=== PATIENT | female | born 1960 | race Caucasian/White ===

== ENCOUNTER 2020-06-16 10:33 | Outpatient (REF) | payer MEDICARE, OTHER, MEDICAID, SELFPAY ==
[2020-06-16 12:10] LABS: MANUAL DIFF FLAG NO
[2020-06-16 12:16] LABS: Basophils Percent Auto 0.3 % (0-2); Eosinophils Absolute Auto 0.1 X10*3/uL (0.0-0.4); Eosinophils Percent Auto 0.8 % (0-4); Hematocrit 46.6 % (37-47); Hemoglobin 15.2 g/dl (12.0-16.0); Imm Gran Abs Auto 0.02 X10*3/uL (0.00-0.03); Imm Gran Pct Auto 0.2 % (0.0-0.4); Lymphocytes Absolute Auto 2.6 X10*3/uL (1.2-4.9); Lymphocytes Percent Auto 28.9 % (20-40); Mean Corpuscular HGB Conc 32.6 g/dl (31.0-35.0); Mean Corpuscular Hemoglobin 33.1 pg (27.0-33.0); Mean Corpuscular Volume 101.5 fL (80-98); Mean Platelet Volume 9.7 fL (9.4-12.3); Monocytes Absolute Auto 0.5 X10*3/uL (0.1-1.2); Monocytes Percent Auto 5.3 % (2-11); Neutrophils Absolute Auto 5.7 X10*3/uL (2.0-8.3); Neutrophils Percent Auto 64.5 % (45-73); Platelet Count 224 X10*3/uL (160-400); Red Blood Count 4.59 X10*6/uL (4.20-5.50); Red Cell Distribution Width 12.8 % (11.0-16.0); White Blood Count 8.9 X10*3/uL (4.8-10.8)
[2020-06-16 12:20] LABS: Glucose Urine UA NEG (NEG); Leukocyte Esterase Urine NEG (NEG); Nitrite Urine NEG (NEG); Urine Blood 1+ (NEG); Urine Ketones NEG (NEG); Urine Protein NEG (NEG-TRACE)
[2020-06-16 12:21] LABS: Appearance Urine HAZY; Color Urine YELLOW
[2020-06-16 12:29] LABS: Bacteria Urine TRACE /LPF; Squamous Epithelial Cell Urine 2+ /LPF; WBC Urine 0 /HPF (0-4)
[2020-06-16 12:38] LABS: Alanine Aminotransferase 15 U/L (0-31); Albumin Level 4.4 g/dL (3.5-5.0); Alkaline Phosphatase 89 U/L (39-117); Anion Gap 14 (12-20); Aspartate Amino Transferase 15 U/L (5-31); Bilirubin Total 0.7 mg/dL (0.0-1.0); Blood Urea Nitrogen 13 mg/dL (9-16); Calcium 9.6 mg/dL (8.4-10.2); Carbon Dioxide 29 mmol/L (22-29); Chloride 101 mmol/L (96-108); Cholesterol 236 mg/dL; Estimated Glomerular Filt Rate > 60; Glucose Fasting 103 mg/dL (60-99); HDL Cholesterol 58 mg/dL; LDL Cholesterol Calculated 151 mg/dl; Potassium 4.8 mmol/l (3.3-5.1); Sodium 139 mmol/L (135-145); Total Protein 7.6 g/dL (6.5-8.0); Triglycerides 138 mg/dL
== END 2020-06-16 10:34 | disposition home or self-care (01) ==
LOC: HO.LAB 10:33
PROVIDERS: PCP Internal Medicine Endocrinology, Diabetes & Metabolism; Visit Provider Internal Medicine Endocrinology, Diabetes & Metabolism
DX: I10 Essential (primary) hypertension (principal); M19.90 Unspecified osteoarthritis, unspecified site
CPT/HCPCS: 36415; 80053; 80061; 81001; 85025

== ENCOUNTER 2021-06-15 07:56 | Outpatient (REF) | payer MEDICARE, OTHER, SELFPAY ==
[2021-06-15 08:15] LABS: MANUAL DIFF FLAG NO
[2021-06-15 09:01] LABS: Basophils Percent Auto 0.4 % (0-2); Eosinophils Percent Auto 0.5 % (0-4); Hematocrit 44.1 % (37-47); Hemoglobin 14.6 g/dl (12.0-16.0); Imm Gran Abs Auto 0.01 X10*3/uL (0.00-0.03); Imm Gran Pct Auto 0.1 % (0.0-0.4); Lymphocytes Absolute Auto 2.7 X10*3/uL (1.2-4.9); Lymphocytes Percent Auto 34.1 % (20-40); Mean Corpuscular HGB Conc 33.1 g/dl (31.0-35.0); Mean Corpuscular Hemoglobin 33.3 pg (27.0-33.0); Mean Corpuscular Volume 100.5 fL (80-98); Mean Platelet Volume 9.2 fL (9.4-12.3); Monocytes Absolute Auto 0.4 X10*3/uL (0.1-1.2); Monocytes Percent Auto 5.4 % (2-11); Neutrophils Absolute Auto 4.7 X10*3/uL (2.0-8.3); Neutrophils Percent Auto 59.5 % (45-73); Platelet Count 223 X10*3/uL (160-400); Red Blood Count 4.39 X10*6/uL (4.20-5.50); Red Cell Distribution Width 12.8 % (11.0-16.0); White Blood Count 7.9 X10*3/uL (4.8-10.8)
[2021-06-15 09:29] LABS: Alanine Aminotransferase 15 U/L (0-31); Albumin Level 4.1 g/dL (3.5-5.0); Alkaline Phosphatase 81 U/L (39-117); Anion Gap 12 (12-20); Aspartate Amino Transferase 15 U/L (5-31); Bilirubin Total 0.9 mg/dL (0.0-1.0); Blood Urea Nitrogen 12 mg/dL (9-16); Calcium 9.7 mg/dL (8.4-10.2); Carbon Dioxide 26 mmol/L (22-29); Chloride 105 mmol/L (96-108); Cholesterol 224 mg/dL; Estimated Glomerular Filt Rate > 60; Glucose Fasting 97 mg/dL (60-99); HDL Cholesterol 53 mg/dL; LDL Cholesterol Calculated 144 mg/dl; Potassium 4.9 mmol/L (3.3-5.1); Sodium 138 mmol/L (135-145); Total Protein 7.2 g/dL (6.5-8.0); Triglycerides 136 mg/dL
== END 2021-06-15 07:57 | disposition home or self-care (01) ==
LOC: HO.LAB 07:56
PROVIDERS: PCP Internal Medicine Endocrinology, Diabetes & Metabolism; Visit Provider Internal Medicine Endocrinology, Diabetes & Metabolism
DX: E78.00 Pure hypercholesterolemia, unspecified (principal); I10 Essential (primary) hypertension
CPT/HCPCS: 36415; 80053; 80061; 85025

== ENCOUNTER 2021-11-05 10:05 | Outpatient (REF) | payer MEDICARE, OTHER, SELFPAY ==
[2021-11-05 11:29] LABS: MANUAL DIFF FLAG NO
[2021-11-05 11:41] LABS: Basophils Percent Auto 0.4 % (0-2); Eosinophils Percent Auto 0.5 % (0-4); Hematocrit 42.8 % (37.0-47.0); Hemoglobin 13.9 g/dl (12.0-16.0); Imm Gran Abs Auto 0.03 X10*3/uL (0.00-0.03); Imm Gran Pct Auto 0.4 % (0.0-0.4); Lymphocytes Absolute Auto 2.8 X10*3/uL (1.2-4.9); Lymphocytes Percent Auto 35.8 % (20-40); Mean Corpuscular HGB Conc 32.5 g/dl (31.0-35.0); Mean Corpuscular Volume 101.7 fL (80.0-98.0); Mean Platelet Volume 9.4 fL (9.4-12.3); Monocytes Absolute Auto 0.5 X10*3/uL (0.1-1.2); Monocytes Percent Auto 5.9 % (2-11); Neutrophils Absolute Auto 4.5 x10*3/uL (2.0-8.3); Platelet Count 221 X10*3/uL (160-400); Red Blood Count 4.21 X10*6/uL (4.20-5.50); Red Cell Distribution Width 13.1 % (11.0-16.0); White Blood Count 7.8 X10*3/uL (4.8-10.8)
[2021-11-05 12:11] LABS: Appearance Urine HAZY; Color Urine YELLOW; Glucose Urine UA NEG (NEG); Leukocyte Esterase Urine NEG (NEG); Nitrite Urine NEG (NEG); PH 5.5 (5.0-8.0); Specific Gravity - Urine >= 1.030 (1.005-1.025); Urine Blood TRACE (NEG); Urine Ketones NEG (NEG); Urine Protein NEG (NEG-TRACE)
[2021-11-05 12:16] LABS: Alanine Aminotransferase 12 U/L (0-31); Albumin Level 4.1 g/dL (3.5-5.0); Alkaline Phosphatase 75 U/L (39-117); Anion Gap 13 (12-20); Aspartate Amino Transferase 15 U/L (5-31); Bilirubin Total 0.6 mg/dL (0.0-1.0); Blood Urea Nitrogen 13 mg/dL (9-16); Calcium 9.5 mg/dL (8.4-10.2); Carbon Dioxide 26 mmol/L (22-29); Chloride 103 mmol/L (96-108); Cholesterol 212 mg/dL; Estimated Glomerular Filt Rate > 60; Glucose Fasting 89 mg/dL (60-99); HDL Cholesterol 55 mg/dL; LDL Cholesterol Calculated 132 mg/dl; Potassium 4.9 mmol/L (3.3-5.1); Sodium 137 mmol/L (135-145); Total Protein 7.1 g/dL (6.5-8.0); Triglycerides 126 mg/dL
[2021-11-05 12:20] LABS: TSH reflex Free T4 2.09 uIU/mL (0.32-4.0)
[2021-11-05 12:24] LABS: RBC Urine 0-2 /HPF (0); WBC Urine 0-2 /HPF (0-4)
[2021-11-05 12:25] LABS: Amorphous Sediment Urine 1+ /LPF; Bacteria Urine 1+ /LPF; Mucus Urine 1+ /LPF; Squamous Epithelial Cell Urine 2+ /LPF
[2021-11-05 12:33] LABS: Amphetamine Screen Urine Not Detected (Not Detect); Barbiturates, Urine Not Detected (Not Detect); Benzodiazepines Screen Urine Not Detected (Not Detect); Cannabinoid Screen Urine POSITIVE (Not Detect); Cocaine Screen Urine Not Detected (Not Detect); Fentanyl, urine Not Detected (Not Detect); Opiate Screen Urine POSITIVE (Not Detect); Phencyclidine Screen Urine Not Detected (Not Detect)
[2021-11-05 12:38] LABS: Creatinine Urine 174.56 mg/dL; Microalbum/Creatinine Ratio Ur 7.4 ug/mg cr
== END 2021-11-05 10:06 | disposition home or self-care (01) ==
LOC: HO.WFDLDS 10:05
PROVIDERS: Visit Provider Family Medicine
DX: Z00.00 Encounter for general adult medical examination without abnormal findings (principal); M54.50 Low back pain, unspecified; I10 Essential (primary) hypertension; G89.29 Other chronic pain; Z79.891 Long term (current) use of opiate analgesic
CPT/HCPCS: 80053; 80061; 80307; 81001; 81003; 82043; 84443; 85025; 86141

== ENCOUNTER 2021-12-24 08:06 | Outpatient (REF) | payer MEDICARE, OTHER, SELFPAY ==
[2021-12-24 12:40] LABS: Ferritin 85 ng/mL (10-250)
[2021-12-24 12:48] LABS: Rheumatoid Factor < 15.0 IU/mL (<15.0)
[2021-12-24 13:35] LABS: Erythrocyte Sedimentation Rate 14 MM/HR (0-20)
[2021-12-26 14:26] LABS: CRP High Sensitivity 2.1 mg/L
[2021-12-26 17:02] LABS: Cyclic Citrullinated Peptide <16 UNITS
== END 2021-12-24 08:07 | disposition home or self-care (01) ==
LOC: HO.WFDLDS 08:06
PROVIDERS: Visit Provider Family Medicine
DX: M25.531 Pain in right wrist (principal); G25.81 Restless legs syndrome
CPT/HCPCS: 36415; 82728; 85652; 86141; 86200; 86431

== ENCOUNTER 2022-03-29 10:49 | Outpatient (REF) | payer MEDICARE, MEDICAID, SELFPAY ==
[2022-03-29 14:15] LABS: Amphetamine Screen Urine Not Detected (Not Detect); Barbiturates, Urine Not Detected (Not Detect); Benzodiazepines Screen Urine Not Detected (Not Detect); Cannabinoid Screen Urine POSITIVE (Not Detect); Cocaine Screen Urine Not Detected (Not Detect); Fentanyl, urine Not Detected (Not Detect); Opiate Screen Urine POSITIVE (Not Detect); Phencyclidine Screen Urine Not Detected (Not Detect)
== END 2022-03-29 10:50 | disposition home or self-care (01) ==
LOC: HO.WFDLNP 10:49
PROVIDERS: Visit Provider Family Medicine
DX: G89.29 Other chronic pain (principal); Z79.891 Long term (current) use of opiate analgesic
CPT/HCPCS: 80307

== ENCOUNTER 2022-09-09 14:49 | Outpatient (REF) | payer MEDICARE, MEDICAID, SELFPAY ==
--- NOTE | ~2022-09-09 | MM_ITS ---
EXAMINATION: MM SCREENING DIGITAL BREAST TOMOSYNTHESIS, BILATERAL CLINICAL INFORMATION: Screening. Asymptomatic. The lifetime risk of breast cancer based on the Tyrer-Cuzick Model is 6.1%. COMPARISON: Mammography: August 23, 2015 TECHNIQUE: Digital breast tomosynthesis is performed in both the craniocaudal and mediolateral oblique views along with computer-aided detection (CAD). Synthesized 2D images are generated from the tomosynthesis. FINDINGS: The breasts are almost entirely fatty (ACR BI-RADS breast composition Category a). There are no significant masses, abnormal calcifications, or other abnormalities. MM/MM tomosynthesis screening BI IMPRESSION: No significant changes ASSESSMENT: BI-RADS 1: Negative RECOMMENDATION: Routine annual mammography screening. This patient's information was entered into a reminder system with a target due date for their next mammogram.
== END 2022-09-09 14:50 | disposition home or self-care (01) ==
LOC: HO.MAMMO 14:49
PROVIDERS: PCP Family Medicine; Visit Provider Family Medicine
DX: Z12.31 Encounter for screening mammogram for malignant neoplasm of breast (principal)
CPT/HCPCS: 77063; 77067

== ENCOUNTER 2022-11-18 11:08 | Outpatient (REF) | payer MEDICARE, MEDICAID, SELFPAY ==
[2022-11-18 14:03] LABS: MANUAL DIFF FLAG NO
[2022-11-18 14:10] LABS: Basophils Percent Auto 0.3 % (0-2); Eosinophils Absolute Auto 0.1 X10*3/uL (0.0-0.4); Eosinophils Percent Auto 0.6 % (0-4); Hematocrit 46.7 % (37.0-47.0); Hemoglobin 15.2 g/dl (12.0-16.0); Imm Gran Abs Auto 0.03 X10*3/uL (0.00-0.03); Imm Gran Pct Auto 0.3 % (0.0-0.4); Lymphocytes Absolute Auto 2.8 X10*3/uL (1.2-4.9); Lymphocytes Percent Auto 30.3 % (20-40); Mean Corpuscular HGB Conc 32.5 g/dl (31.0-35.0); Mean Corpuscular Hemoglobin 33.2 pg (27.0-33.0); Mean Platelet Volume 9.5 fL (9.4-12.3); Monocytes Absolute Auto 0.6 X10*3/uL (0.1-1.2); Monocytes Percent Auto 5.9 % (2-11); Neutrophils Absolute Auto 5.8 x10*3/uL (2.0-8.3); Neutrophils Percent Auto 62.6 % (45-73); Platelet Count 261 X10*3/uL (160-400); Red Blood Count 4.58 X10*6/uL (4.20-5.50); Red Cell Distribution Width 12.9 % (11.0-16.0); White Blood Count 9.3 X10*3/uL (4.8-10.8)
[2022-11-18 14:24] LABS: Appearance Urine Clear; Color Urine Yellow; Glucose Urine UA Negative (Negative); Leukocyte Esterase Urine Negative (Negative); Nitrite Urine Negative (Negative); PH 5.5 (5.0-9.0); Specific Gravity - Urine 1.015 (1.005-1.025); UMIC TRIGGER UA YES; Urine Blood Small (1+) (Negative); Urine Ketones Negative (Negative); Urine Protein Negative (Neg-Trace)
[2022-11-18 14:48] LABS: Alanine Aminotransferase 26 U/L (0-31); Albumin Level 4.2 g/dL (3.5-5.0); Alkaline Phosphatase 87 U/L (39-117); Anion Gap 16 (12-20); Aspartate Amino Transferase 20 U/L (5-31); Bilirubin Total 0.5 mg/dL (0.0-1.0); Blood Urea Nitrogen 13 mg/dL (9-16); Calcium 9.6 mg/dL (8.4-10.2); Carbon Dioxide 26 mmol/L (22-29); Chloride 102 mmol/L (96-108); Cholesterol 254 mg/dL; Estimated Glomerular Filt Rate > 60; Glucose Fasting 97 mg/dL (60-99); HDL Cholesterol 64 mg/dL; LDL Cholesterol Calculated 167 mg/dl; Potassium 4.5 mmol/L (3.3-5.1); Sodium 139 mmol/L (135-145); Total Protein 7.4 g/dL (6.5-8.0); Triglycerides 115 mg/dL
[2022-11-18 15:03] LABS: Creatinine Urine 63.53 mg/dL; Microalbum/Creatinine Ratio Ur 15.7 ug/mg cr
[2022-11-18 15:05] LABS: Bacteria Urine None Seen (None Seen); Hyaline Casts Urine 0-2 /LPF (0-2); RBC Urine 0-2 /HPF (0-2); WBC Urine 0-5 /HPF (0-5)
[2022-11-18 15:09] LABS: TSH reflex Free T4 1.51 uIU/mL (0.32-4.0)
== END 2022-11-18 11:09 | disposition home or self-care (01) ==
LOC: HO.WFDLDS 11:08
PROVIDERS: Visit Provider Family Medicine
DX: Z00.00 Encounter for general adult medical examination without abnormal findings (principal); I10 Essential (primary) hypertension
CPT/HCPCS: 36415; 80053; 80061; 81001; 82043; 84443; 85025

== ENCOUNTER 2023-02-24 09:40 | Outpatient (REF) | payer MEDICARE, MEDICAID, SELFPAY ==
[2023-02-24 12:09] LABS: Cholesterol 241 mg/dL; HDL Cholesterol 58 mg/dL; LDL Cholesterol Calculated 152 mg/dl; Triglycerides 155 mg/dL
== END 2023-02-24 09:41 | disposition home or self-care (01) ==
LOC: HO.WFDLDS 09:40
PROVIDERS: Visit Provider Nurse Practitioner Family
DX: E78.00 Pure hypercholesterolemia, unspecified (principal)
CPT/HCPCS: 36415; 80061

== ENCOUNTER 2023-03-10 08:42 | Outpatient (AMB) | payer MEDICARE, MEDICAID, SELFPAY ==
[2023-03-10 08:45] VITALS: BP 132/88; PULSE 96; RESP 14; TEMP 36.6; O2SAT 98; BMI 39.1
--- NOTE | 2023-03-10 08:45 | MHC.PC.OV ---
Vital Signs 03/10/23 08:45 Height 5 ft 4 in Weight 228 lb BMI 39.1 BP 132/88 Blood Pressure Location Rt brachial Position Sitting Respiration 14 Pulse 96 Pulse Source Pulse Oximeter Temp 97.9 F Temp Source Temporal Artery Scan Pulse Oximetry (%) 98 Oxygen Delivery Method Room Air Intake Visit Reasons: anxiety/depression Intake Note: Patient presents today for a follow up regarding anxiety and depression. Patient states her medications are due for refill. Wash Driller Helper Required: No Accompanied by: Self / Same As Patient Allergies No Known Allergies Allergy (Verified 03/10/23 13:32) Medication List - Last Reconciled 03/10/23 by Miguel Fregoso CNP naloxone 4 mg/actuation (Narcan) 4 mg intranasal Q2M PRN 30 days oxycodone-acetaminophen 5-325 mg 1 tab PO BID PRN 28 days Tobacco use date assessed: 03/10/23 Dental Screening Dental Screen Date: 03/10/23 Did you have a dental visit in the last 12 months?: No Did you have a dental problem in the last 6 months where you did not have access to dental care?: No Was dental information given to patient?: No HPI HPI Comments History of Present Illness Details 63-year-old female presents for anxiety and depression follow-up She reports significant improvement with weekly therapy She notes she has been expanded activities by walking the stairs in her home She reports chronic persistent lower back and bilateral extremity pain which responds well to current pain regimen. No tingling or numbness. No loss of sensation. She request a refill of her pain medication She states she has been making progress with smoking cessation. She has reduced her smoking from 15 to 9 cigarettes daily. She notes that he will be more effective if she tries to quit independently instead of therapy or medication treatment. [facility] Family History (Updated 10/01/21 @ 15:07 by Ashleigh Araujo) Family/Other Cancer Social History Housing: Apartment Patient Tobacco Use Status: Current everyday Tobacco user Cigarette Packs Per Day: 0 Cigarettes Per Day: 10 Years Smoked: 10+ YEARS e-Cigarette/Vaping Use: Never Used Second Hand Smoke Exposure: Yes service: Yes Current occupational status: disabled Current occupational exposures/hazards: No Cognitive needs: No Hearing needs: No Vision needs: No Questionnaire PHQ-9 Over the last 2 weeks, how often have you been bothered by any of the following problems? 1. Little interest or pleasure in doing things: more than half the days 2. Feeling down, depressed, or hopeless: several days 3. Trouble falling or staying asleep, or sleeping too much: several days 4. Feeling tired or having little energy: several days 5. Poor appetite or overeating: more than half the days 6. Feeling bad about yourself - or that you are a failure or have let yourself or your family down: several days 7. Trouble concentrating on things, such as reading the newspaper or watching television: not at all 8. Moving or speaking so slowly that other people could have noticed. Or the opposite - being so fidgety or restless that you have been moving around a lot more than usual: several days 9. Thoughts that you would be better off or of hurting yourself in some way: not at all Total score: 9 Depression Screening Interpretation: Positive Depression Screening Follow-up: Existing condition and In treatment Source: Developed by Drs. Doug France, Juliann Allen, Jose Nelson and colleagues, with an educational tommy from [employer]. Thrive Questionnaire Date Thrive assessed: 10/01/21 JAIR-7 AMB Questionnaire JAIR-7 Date JAIR - 7 assessed: 03/10/23 Feeling nervous, anxious, or on edge: 1 = Several days Not being able to stop or control worryin = Several days Worrying too much about different things: 1 = Several days Trouble relaxin = Several days Being so restless that it is hard to sit still: 1 = Several days Becoming easily annoyed or irritable: 1 = Several days Feeling afraid as if something awful might happen: 0 = Not at all Total JAIR-7 score (0-4 normal; 5-9 mild; 10-14 moderate; 15-21 severe): 6 Source: Developed by Drs. Doug France, Juliann Allen, Jose Nelson and colleagues, with an educational tommy from [employer]. JAIR-7 Assessment Billing JAIR-7 Assessment Tool: JAIR-7 Assessment 11289 Review of Systems Const Details: Const Denies chills, Denies fatigue, Denies fever(s), Denies headache(s) and Denies weakness ENT Denies change in vision, Denies dizziness, Denies headache(s), Denies hearing loss, Denies nasal congestion, Denies sinus pain, Denies sinus pressure and Denies sore throat Resp Denies cough, Denies dyspnea, Denies wheezing and Denies other (shortness of breath) Cardio Denies chest pain, Denies lightheadedness, Denies dyspnea and Denies other (palpitations) Neuro Denies dizziness, Denies headache(s), Denies numbness, Denies tingling and Denies weakness Musc Reports as per HPI Psych Denies anxiety, Denies depression, Denies memory?loss Endo Denies fatigue Aller/Immun Denies wheezing Physical exam (Primary Care) Vital Signs: Last Vital Signs Temp 97.9 F 03/10/23 08:45 Pulse 96 03/10/23 08:45 Resp 14 03/10/23 08:45 BP 132/88 03/10/23 08:45 Pulse Ox 98 03/10/23 08:45 Oxygen Delivery Method Room Air 03/10/23 08:45 BMI result Body Mass Index 39.1 Tobacco/Smoking Status: Tobacco use Status Tobacco use date assessed 03/10/23 03/10/23 08:56 Patient Tobacco Use Status Current everyday Tobacco 03/10/23 08:46 e-Cigarette/Vaping Use Never Used 03/10/23 08:46 PHQ-9: PHQ-9 Score PHQ-9: Total score 9 03/10/23 09:06 Depression Screening Interpretation: Positive Depression Screening Follow-up: Existing condition and In treatment Thrive Assessment: Date of Thrive Assessment Date Thrive assessed 10/01/21 03/10/23 08:46 Const Other: Const General: well developed; No acute distress Nutritional Appearance: well nourished Orientation/consciousness: patient oriented x3 HEENT Head: Yes normocephalic and Yes atraumatic Eyes General: appearance normal, both eyes and all related structures Pupils: Equal, round and reactive pupils present EOM: EOMs intact bilaterally Resp Effort & Inspection: normal respiratory effort Auscultation: clear to auscultation bilaterally Cardio Rate: regular rate Rhythm: regular rhythm Heart sounds: S1 normal heart sound present, S2 normal heart sound present, no gallops, no murmurs and no rubs Bruits: no abdominal aortic bruits and no carotid bruit Back/Spine/Pelvis Back: no CVA tenderness Cervical Spine: cervical ROM normal and No Cervical spine tenderness Thoracic/Lumbar Spine: thoraco-lumbar ROM normal, No pain with thoraco-lumbar ROM, No thoracic spinal tenderness and No lumbar spinal tenderness Extrem General: Yes normal to inspection, No edema and No calf tenderness Neuro General: patient oriented x3 and gait normal, no focal neuro deficit Cranial nerves: Yes Equal, round and reactive pupils present Psych Affect: normal affect Assessment and Plan Assessment & Plan (1) Anxiety and depression: Code(s): F41.9 - Anxiety disorder, unspecified; F32.A - Depression, unspecified Plan: PHQ-9 and JAIR-7 scores revealed mild depression and anxiety Declines medication management Continue follow-up with therapist as planned Routine exercise encouraged Follow-up with PCP in 3 months month or return sooner with worsening or new symptoms Verbalized understanding and agreed with treatment plan. (2) Chronic pain: Code(s): G89.29 - Other chronic pain Plan: She reports chronic persistent lower back and bilateral extremity pain which responds well to current pain regimen Percocet refilled. Take as prescribed Warm and cold compresses encouraged Follow-up with worsening symptoms Verbalized understanding and agreed with treatment plan. (3) Encounter for smoking cessation counseling: Code(s): Z71.6 - Tobacco abuse counseling Plan: She states she has been making progress with smoking cessation. She has reduced her smoking from 15 to 9 cigarettes daily. She notes that he will be more effective if she tries to quit independently instead of therapy or medication treatment Declines smoking cessation counseling Smoking cessation encouraged Advised to inform her PCP if she changes her mind on therapy or medication treatment Verbalized understanding and agreed with plan. Medications: Refilled oxycodone-acetaminophen 5-325 mg MassPat verified. Partial refill upon request. 1 tab PO BID 28 days PRN 56 tabs 0RF pain Coding Level of Care Code Est Pt Level 4 (26493) Diagnoses Anxiety and depression F41.9; F32.A Chronic pain G89.29 Encounter for smoking cessation counseling Z71.6 Additional Codes JAIR-7 Assessment Billing - JAIR-7 Assessment Tool: JAIR-7 Assessment 59723 ([id number]) Time Spent (min) 30
== END 2023-03-10 09:30 | disposition home or self-care (01) ==
PROVIDERS: Visit Provider Nurse Practitioner Family
DX: F41.9 Anxiety disorder, unspecified (principal); F32.A Depression, unspecified; G89.29 Other chronic pain; Z71.6 Tobacco abuse counseling
CPT/HCPCS: 96127; 99214

== ENCOUNTER 2023-06-09 08:50 | Outpatient (AMB) | payer MEDICARE, MEDICAID, SELFPAY ==
[2023-06-09 08:56] VITALS: BP 154/80; PULSE 96; RESP 13; TEMP 36.4; O2SAT 95; BMI 40.0
--- NOTE | 2023-06-09 08:56 | MHC.PC.OV ---
Vital Signs 06/09/23 08:56 06/09/23 09:33 Height 5 ft 4 in Weight 233 lb BMI 40.0 BP 154/80 H 138/90 H Blood Pressure Location Lt brachial Lt brachial Position Sitting Sitting Respiration 13 Pulse 96 Pulse Source Pulse Oximeter Temp 97.5 F Temp Source Temporal Artery Scan Pulse Oximetry (%) 95 Oxygen Delivery Method Room Air Intake Visit Reasons: anxiety/depression and chronic conditions Intake Note: Patient would like to be referred to a machinist apprentice wood. Patient would also like to be referred to OBGYN as well due to new family history coming up. [id number] states that her PHQ-9 scores and Jackson-7 scores are based off of new family issues and worries that have been present past 2 weeks Bartenders Required: No Accompanied by: Self / Same As Patient Allergies No Known Allergies Allergy (Verified 06/09/23 09:22) Medication List - Last Reconciled 06/09/23 by Miguel Fregoso CNP naloxone 4 mg/actuation (Narcan) 4 mg intranasal Q2M PRN 30 days oxycodone-acetaminophen 5-325 mg 1 tab PO BID PRN 28 days Tobacco use date assessed: 03/10/23 Dental Screening Dental Screen Date: 06/09/23 Did you have a dental visit in the last 12 months?: Yes Did you have a dental problem in the last 6 months where you did not have access to dental care?: No Was dental information given to patient?: Patient has dentist HPI HPI Comments History of Present Illness Details 63-year-old female presents for anxiety and depression follow-up She reports significant improvement with weekly therapy She notes she has been expanded activities by walking the stairs in her home. She notes that she has been making unhealthy dietary choices and requests a referral to a machinist apprentice wood/dietitian. [facility] Medical History No pertinent past medical history Surgical History No pertinent past surgical history Family History Family/Other Cancer Social History Housing: Apartment Patient Tobacco Use Status: Current everyday Tobacco user Cigarette Packs Per Day: 0 Cigarettes Per Day: 10 Years Smoked: 10+ YEARS e-Cigarette/Vaping Use: Never Used Second Hand Smoke Exposure: Yes service: Yes Current occupational status: disabled Current occupational exposures/hazards: No Cognitive needs: No Hearing needs: No Vision needs: No Questionnaire PHQ-9 Over the last 2 weeks, how often have you been bothered by any of the following problems? 1. Little interest or pleasure in doing things: several days 2. Feeling down, depressed, or hopeless: several days 3. Trouble falling or staying asleep, or sleeping too much: several days 4. Feeling tired or having little energy: more than half the days 5. Poor appetite or overeating: more than half the days 6. Feeling bad about yourself - or that you are a failure or have let yourself or your family down: several days 7. Trouble concentrating on things, such as reading the newspaper or watching television: several days 8. Moving or speaking so slowly that other people could have noticed. Or the opposite - being so fidgety or restless that you have been moving around a lot more than usual: not at all 9. Thoughts that you would be better off or of hurting yourself in some way: not at all Total score: 9 Depression Screening Interpretation: Positive Depression Screening Follow-up: Existing condition and In treatment Depression Screening Done: Yes Source: Developed by Drs. Doug France, Juliann Allen, Jose Nelson and colleagues, with an educational tommy from [employer]. Thrive Questionnaire Date Thrive assessed: 10/01/21 JACKSON-7 AMB Questionnaire JACKSON-7 Date JACKSON - 7 assessed: 06/09/23 Feeling nervous, anxious, or on edge: 1 = Several days Not being able to stop or control worryin = Several days Worrying too much about different things: 1 = Several days Trouble relaxin = Not at all Being so restless that it is hard to sit still: 0 = Not at all Becoming easily annoyed or irritable: 0 = Not at all Feeling afraid as if something awful might happen: 1 = Several days Total JACKSON-7 score (0-4 normal; 5-9 mild; 10-14 moderate; 15-21 severe): 4 Source: Developed by Juliann Yin Alejandro, Jose Nelson and colleagues, with an educational tommy from [employer]. Review of Systems Const Details: Const Denies chills, Denies fatigue, Denies fever(s), Denies headache(s) and Denies weakness ENT Denies dizziness and Denies headache(s) Card Denies chest pain, Denies lightheadedness, Denies dyspnea and Denies other (Palpitations) Resp Denies cough, Denies dyspnea, Denies wheezing and Denies other ( shortness of breath) GI Denies abdominal pain, Denies melena, Denies hematochezia, Denies change in bowel habits, Denies dyspepsia and Denies nausea Denies hematuria and Denies dysuria Musc Reports chronic low back pain, Denies abnormal gait, Denies numbness and Denies tingling Skin/Breast Denies rash, Denies unusual bruising and Denies wounds Neuro Denies abnormal gait, Denies dizziness, Denies headache(s), Denies memory loss, Denies numbness, Denies Sensory deficit (Neuro), Denies tingling and Denies weakness Psych Denies anxiety, Denies depression, Denies memory loss Endo Denies cold intolerance, Denies fatigue, Denies heat intolerance, Denies polydipsia and Denies polyuria Aller/Immun Denies wheezing Physical exam (Primary Care) Vital Signs: Last Vital Signs Temp 97.5 F 06/09/23 08:56 Pulse 96 06/09/23 08:56 Resp 13 06/09/23 08:56 BP 154/80 H 06/09/23 08:56 Pulse Ox 95 06/09/23 08:56 Oxygen Delivery Method Room Air 06/09/23 08:56 BMI result Body Mass Index 40.0 Tobacco/Smoking Status: Tobacco use Status Tobacco use date assessed 03/10/23 06/09/23 09:07 Patient Tobacco Use Status Current everyday Tobacco 06/09/23 09:07 e-Cigarette/Vaping Use Never Used 06/09/23 09:07 PHQ-9: PHQ-9 Score PHQ-9: Total score 9 06/09/23 09:07 Depression Screening Interpretation: Positive Depression Screening Follow-up: Existing condition and In treatment Thrive Assessment: Date of Thrive Assessment Date Thrive assessed 10/01/21 06/09/23 09:07 Const Other: General: no acute distress and well developed Nutritional Appearance: well nourished Orientation/consciousness: patient oriented x3 HENMT Head: Yes normocephalic and Yes atraumatic Eyes General: appearance normal, both eyes and all related structures Pupils: Equal, round and reactive pupils present EOM: EOMs intact bilaterally Resp Effort & Inspection: normal respiratory effort Auscultation: clear to auscultation bilaterally Cardio Rate: regular rate Rhythm: regular rhythm Heart sounds: S1 normal heart sound present, S2 normal heart sound present, no gallops, no murmurs and no rubs GI Palpation (GI): No Abdominal aortic bruit present, Soft to palpation, nontender, No hepatosplenomegaly present and No Rebound tenderness present Auscultation: normal bowel sounds General: Yes no CVA tenderness Back/Spine/Pelvis Back: no CVA tenderness Cervical Spine: cervical ROM normal and No Cervical spine tenderness Thoracic/Lumbar Spine: thoraco-lumbar ROM normal, No pain with thoraco-lumbar ROM, No thoracic spinal tenderness and No lumbar spinal tenderness Extrem General: Yes normal to inspection, No edema and No calf tenderness Skin General: warm and dry. Normal skin color. Normal skin turgor Lesions: no lesions Rashes: no rashes Trauma: no lacerations or abrasions Wounds: no wounds Nails: normal Neuro General: patient oriented x3, gait normal and no focal neuro deficit Cranial nerves: Yes Equal, round and reactive pupils present Cognition (Neuro): normal cognition Gait exam (Neuro): Normal gait present Sensory Exam: No Sensory deficit (Neuro) Psych Appearance: grossly normal Affect: normal affect Attitude: cooperative Thought process: Normal thought process present Assessment and Plan Assessment & Plan (1) Anxiety and depression: Code(s): F41.9 - Anxiety disorder, unspecified; F32.A - Depression, unspecified Plan: PHQ-9 score reveals mild depression. JACKSON-7 score is normal Advised to continue weekly psychotherapy Routine exercise encouraged Follow-up with PCP in 1-2 month for health maintenance Return sooner with worsening or new symptoms Verbalized understanding and agreed with treatment plan. (2) Morbid obesity with BMI of 40.0-44.9, adult: Code(s): E66.01 - Morbid (severe) obesity due to excess calories; Z68.41 - Body mass index [BMI] 40.0-44.9, adult Plan: Current weight is 233 lb, BMI is 40.0 He reports only healthy dietary choices Healthy diet and routine exercise encouraged Referred to dietitian/machinist apprentice wood Follow-up with symptoms or concerns Verbalized understanding and agreed with treatment plan. (3) Low back pain: Code(s): M54.50 - Low back pain, unspecified Qualifiers: Chronicity: chronic Sciatica presence: without sciatica Plan: History of chronic low back pain On long-term opioid use for pain management Continue to take Percocet as prescribed. Refill sent to the pharmacy Return with worsening or new symptoms Verbalized understanding and agreed with treatment plan. Orders: Referrals School Child Care Attendant Nutrition Referral E66.01 - Morbid (severe) obesity due to excess calories, Z68.41 - Body mass index [BMI] 40.0-44.9, adult Medications: Refilled oxycodone-acetaminophen 5-325 mg MassPat verified. Partial refill upon request. 1 tab PO BID 28 days PRN 56 tabs 0RF pain Coding Level of Care Code Est Pt Level 3 (16065) Diagnoses Anxiety and depression F41.9; F32.A Morbid obesity with BMI of 40.0-44.9, adult E66.01; Z68.41 Low back pain M54.50 Chronicity: chronic Sciatica presence: without sciatica
[2023-06-09 09:33] VITALS: BP 138/90
== END 2023-06-09 09:40 | disposition home or self-care (01) ==
PROVIDERS: PCP Family Medicine; Visit Provider Nurse Practitioner Family
DX: F41.9 Anxiety disorder, unspecified (principal); F32.A Depression, unspecified; E66.01 Morbid (severe) obesity due to excess calories; Z68.41 Body mass index [BMI] 40.0-44.9, adult; M54.50 Low back pain, unspecified
CPT/HCPCS: 99213

== ENCOUNTER 2023-10-23 09:13 | Outpatient (AMB) | payer MEDICARE, MEDICAID, SELFPAY ==
--- NOTE | 2023-10-23 09:17 | MHC.PC.OV ---
Vital Signs 10/23/23 09:18 Height 5 ft 4 in Weight 221 lb 8 oz BMI 38.0 BP 138/78 Blood Pressure Location Lt brachial Position Sitting Pulse 93 Pulse Source Pulse Oximeter Pulse Oximetry (%) 97 Oxygen Delivery Method Room Air Intake Visit Reasons: f/u health maintenance, see comments Intake Note: Patient is here to follow up with health maintenance, depression, and anxiety. Patient would like updated CT scan. Allergies No Known Allergies Allergy (Verified 10/23/23 09:21) Tobacco use date assessed: 03/10/23 Dental Screening Dental Screen Date: 10/23/23 Did you have a dental visit in the last 12 months?: No Did you have a dental problem in the last 6 months where you did not have access to dental care?: No Was dental information given to patient?: Patient has dentist HPI f/u health maintenance, see comments HPI Details 63 y/o female presents to f/u chronic conditions. Pt reports worsening low back pain with pressure. PFS Medical History No pertinent past medical history Surgical History No pertinent past surgical history Family History Family/Other Cancer Social History Housing: Apartment Patient Tobacco Use Status: Current everyday Tobacco user Cigarette Packs Per Day: 0 Cigarettes Per Day: 10 Years Smoked: 10+ YEARS e-Cigarette/Vaping Use: Never Used Second Hand Smoke Exposure: Yes service: Yes Current occupational status: disabled Current occupational exposures/hazards: No Cognitive needs: No Hearing needs: No Vision needs: No Questionnaire PHQ-9 Over the last 2 weeks, how often have you been bothered by any of the following problems? 1. Little interest or pleasure in doing things: several days 2. Feeling down, depressed, or hopeless: not at all 3. Trouble falling or staying asleep, or sleeping too much: several days 4. Feeling tired or having little energy: not at all 5. Poor appetite or overeating: several days 6. Feeling bad about yourself - or that you are a failure or have let yourself or your family down: not at all 7. Trouble concentrating on things, such as reading the newspaper or watching television: not at all 8. Moving or speaking so slowly that other people could have noticed. Or the opposite - being so fidgety or restless that you have been moving around a lot more than usual: not at all 9. Thoughts that you would be better off or of hurting yourself in some way: not at all Total score: 3 Depression Screening Interpretation: Negative Depression Screening Done: Yes 83815 - PHQ-9 Billing: Yes Source: Developed by Drs. Doug France, Juliann Allen, Jose Nelson and colleagues, with an educational tommy from [employer]. Thrive Questionnaire Date Thrive assessed: 10/01/21 JAIR-7 AMB Questionnaire JAIR-7 Date JAIR - 7 assessed: 10/23/23 Feeling nervous, anxious, or on edge: 0 = Not at all Not being able to stop or control worryin = Several days Worrying too much about different things: 1 = Several days Trouble relaxin = Several days Being so restless that it is hard to sit still: 1 = Several days Becoming easily annoyed or irritable: 0 = Not at all Feeling afraid as if something awful might happen: 0 = Not at all Total JAIR-7 score (0-4 normal; 5-9 mild; 10-14 moderate; 15-21 severe): 4 Source: Developed by Drs. Doug France, Juliann Allen, Jose Nelson and colleagues, with an educational tommy from [employer]. JAIR-7 Assessment Billing JAIR-7 Assessment Tool: JAIR-7 Assessment 73160 Review of Systems Const Denies chills, Denies fatigue, Denies fever(s), Denies headache(s) and Denies weakness ENT Denies dizziness and Denies headache(s) Card Denies chest pain, Denies lightheadedness, Denies dyspnea and Denies other (Palpitations) Resp Denies cough, Denies dyspnea, Denies wheezing and Denies other ( shortness of breath) Musc Denies numbness and Denies tingling Neuro Denies dizziness, Denies headache(s), Denies numbness, Denies tingling, Denies paresthesias and Denies weakness Psych Denies anxiety and Denies depression Endo Denies fatigue Aller/Immun Denies wheezing Physical exam (Primary Care) Vital Signs: Last Vital Signs Pulse 93 10/23/23 09:18 BP 138/78 10/23/23 09:18 Pulse Ox 97 10/23/23 09:18 Oxygen Delivery Method Room Air 10/23/23 09:18 BMI result Body Mass Index 38.0 Tobacco/Smoking Status: Tobacco use Status Tobacco use date assessed 03/10/23 10/23/23 09:31 Patient Tobacco Use Status Current everyday Tobacco 10/23/23 09:31 e-Cigarette/Vaping Use Never Used 10/23/23 09:31 PHQ-9: PHQ-9 Score PHQ-9: Total score 3 10/23/23 10:14 Depression Screening Interpretation: Negative Thrive Assessment: Date of Thrive Assessment Date Thrive assessed 10/01/21 10/23/23 09:31 Const General: no acute distress and well developed Nutritional Appearance: well nourished Orientation/consciousness: patient oriented x3 [facility] Head: Yes normocephalic and Yes atraumatic Eyes General: appearance normal, both eyes and all related structures Pupils: Equal, round and reactive pupils present EOM: EOMs intact bilaterally Resp Effort & Inspection: normal respiratory effort Auscultation: clear to auscultation bilaterally Cardio Rate: regular rate Rhythm: regular rhythm Heart sounds: S1 normal heart sound present, S2 normal heart sound present, no gallops, no murmurs and no rubs Neuro General: patient oriented x3 and gait normal Cranial nerves: Yes Equal, round and reactive pupils present Psych Affect: normal affect Assessment and Plan Assessment & Plan (1) Anxiety and depression: Code(s): F41.9 - Anxiety disorder, unspecified; F32.A - Depression, unspecified Plan: Well?controlled?and?seeing?her?therapist?regularly Continue?to?follow-up?with?therapist?as?recommended (2) Chronic pain: Code(s): G89.29 - Other chronic pain Plan: Chronic?low?back?pain?and?cervicalgia?with?some?symptoms?into?right?arm. Continue?chronic?opioid?medication Will?also?recheck?x-rays?and?may?need?additional?imaging. Will?follow-up?on?x-rays?and?decide?next?steps?with?patient?at?next?visit?in?2-3?weeks (3) Low back pain: Code(s): M54.50 - Low back pain, unspecified Qualifiers: Chronicity: chronic Sciatica presence: without sciatica Plan: As?above (4) Screening for colon cancer: Code(s): Z12.11 - Encounter for screening for malignant neoplasm of colon Plan: Patient?has?not Had?colonoscopy?yet. Recent?a?referral?to?gastroenterology?and?encouraged?her?to?follow-up. (5) Screening for cervical cancer: Code(s): Z12.4 - Encounter for screening for malignant neoplasm of cervix Plan: She?has?an?appointment?with?a?[employer] employment representative (6) Breast cancer screening by mammogram: Code(s): Z12.31 - Encounter for screening mammogram for malignant neoplasm of breast Plan: Due?for?mammogram-ordered (7) Cervicalgia: Code(s): M54.2 - Cervicalgia Plan: As?above,?patient?will?get?x-rays?and?follow-up May?need?additional?imaging?and?we?will?also?discuss?referral?to?a?specialist?as?needed Orders: Orders XR cervical spine 2V Today M54.2 - Cervicalgia XR lumbar spine 2-3V Today M54.50 - Low back pain, unspecified MM tomosynthesis screening BI Today Z12.31 - Encounter for screening mammogram for malignant neoplasm of breast Coding Level of Care Code Est Pt Level 4 (24949) Diagnoses Anxiety and depression F41.9; F32.A Chronic pain G89.29 Low back pain M54.50 Chronicity: chronic Sciatica presence: without sciatica Screening for colon cancer Z12.11 Screening for cervical cancer Z12.4 Breast cancer screening by mammogram Z12.31 Cervicalgia M54.2 Additional Codes JAIR-7 Assessment Billing - JAIR-7 Assessment Tool: JAIR-7 Assessment [id number] ([id number])
[2023-10-23 09:18] VITALS: BP 138/78; PULSE 93; O2SAT 97; BMI 38.0
== END 2023-10-23 10:31 | disposition home or self-care (01) ==
PROVIDERS: PCP Family Medicine; Visit Provider Family Medicine
DX: G89.29 Other chronic pain (principal); F41.9 Anxiety disorder, unspecified; F32.A Depression, unspecified; M54.2 Cervicalgia; M54.50 Low back pain, unspecified; Z12.11 Encounter for screening for malignant neoplasm of colon; Z12.31 Encounter for screening mammogram for malignant neoplasm of breast
CPT/HCPCS: 99214

== ENCOUNTER 2023-10-27 08:14 | Outpatient (REF) | payer MEDICARE, MEDICAID, SELFPAY ==
--- NOTE | ~2023-10-27 | MM_ITS ---
EXAMINATION: MM SCREENING DIGITAL BREAST TOMOSYNTHESIS, BILATERAL CLINICAL INFORMATION: Screening. Asymptomatic. COMPARISON: Mammography: This study is compared with prior exams dating back to 2015. TECHNIQUE: Digital breast tomosynthesis is performed in both the craniocaudal and mediolateral oblique views along with computer-aided detection (CAD). Synthesized 2D images are generated from the tomosynthesis. FINDINGS: The breasts are almost entirely fatty (ACR BI-RADS breast composition Category a). There are no significant masses, abnormal calcifications, or other abnormalities. MM/MM tomosynthesis screening BI IMPRESSION: No mammographic evidence of malignancy. ASSESSMENT: BI-RADS BI-RADS 1 - Negative RECOMMENDATION: Routine annual mammography screening. 1 year F/U This examination should not preclude the clinical evaluation of a suspicious palpable abnormality. This patient's information was entered into a reminder system with a target due date for their next mammogram.
== END 2023-10-27 08:15 | disposition home or self-care (01) ==
LOC: HO.MAMMO 08:14
PROVIDERS: PCP Family Medicine; Visit Provider Family Medicine
DX: Z12.31 Encounter for screening mammogram for malignant neoplasm of breast (principal)
CPT/HCPCS: 77063; 77067

== ENCOUNTER → 2023-10-27 08:30 | Outpatient (BNV) | payer MEDICARE, MEDICAID, SELFPAY | PROVIDERS: PCP Family Medicine; Visit Provider Radiology Diagnostic Radiology | DX: Z12.31 Encounter for screening mammogram for malignant neoplasm of breast (principal) | CPT/HCPCS: 77063; 77067 ==

== ENCOUNTER 2023-12-04 11:33 | Outpatient (AMB) | payer MEDICARE, MEDICAID, SELFPAY ==
[2023-12-04 11:41] VITALS: BP 128/70; PULSE 95; O2SAT 96; BMI 38.6
--- NOTE | 2023-12-04 11:41 | MHC.PC.OV ---
Vital Signs 12/04/23 11:41 Height 5 ft 4 in Weight 225 lb BMI 38.6 BP 128/70 Blood Pressure Location Rt brachial Position Sitting Pulse 95 Pulse Source Pulse Oximeter Pulse Oximetry (%) 96 Intake Visit Reasons: f/u back pain/x-rays Intake Note: Patient is here for follow up on back apin and x-rays. Allergies No Known Allergies Allergy (Verified 12/04/23 11:45) Medication List - Last Reconciled 12/04/23 by Jomar Lopez MD naloxone 4 mg/actuation (Narcan) 4 mg intranasal Q2M PRN 30 days oxycodone-acetaminophen 5-325 mg 1 tab PO BID PRN 28 days Tobacco use date assessed: 12/04/23 Dental Screening Dental Screen Date: 10/23/23 HPI f/u back pain/x-rays HPI Details 63 y/o female presents to f/u back pain / chronic pain. Cervical spine x-ray 10/27/23 shows no acute abnormality or significant degenerative disease. C7-T1 articulation not well seen. Lumbar spine x-ray showed minimal anerolisthesis of L5 on S1, new since prior. Stable bilateral L5 pars interarticularis defects. [facility] Medical History No pertinent past medical history Surgical History No pertinent past surgical history Family History Family/Other Cancer Social History Housing: Apartment Patient Tobacco Use Status: Current everyday Tobacco user Cigarette Packs Per Day: 0 Cigarettes Per Day: 8 Years Smoked: 10+ YEARS e-Cigarette/Vaping Use: Never Used Second Hand Smoke Exposure: Yes service: Yes Current occupational status: disabled Current occupational exposures/hazards: No Cognitive needs: No Hearing needs: No Vision needs: No Questionnaire Thrive Questionnaire Date Thrive assessed: 10/01/21 JAIR-7 AMB Questionnaire JAIR-7 Date AJIR - 7 assessed: 10/23/23 Source: Developed by Drs. Doug France, Juliann Allen, Jose Nelson and colleagues, with an educational tommy from [employer]. Review of Systems Const Denies chills, Denies fatigue, Denies fever(s), Denies headache(s) and Denies weakness ENT Denies dizziness and Denies headache(s) Card Denies dyspnea Resp Denies cough, Denies dyspnea, Denies wheezing and Denies other (shortness of breath) Musc Denies numbness and Denies tingling Neuro Denies dizziness, Denies headache(s), Denies numbness, Denies tingling and Denies weakness Psych Denies anxiety and Denies depression Endo Denies fatigue Aller/Immun Denies wheezing Physical exam (Primary Care) Vital Signs: Last Vital Signs Pulse 95 12/04/23 11:41 BP 128/70 12/04/23 11:41 Pulse Ox 96 12/04/23 11:41 BMI result Body Mass Index 38.6 Tobacco/Smoking Status: Tobacco use Status Tobacco use date assessed 12/04/23 12/04/23 11:46 Patient Tobacco Use Status Current everyday Tobacco 12/04/23 11:44 e-Cigarette/Vaping Use Never Used 12/04/23 11:44 Thrive Assessment: Date of Thrive Assessment Date Thrive assessed 10/01/21 12/04/23 11:44 Const General: well developed; No acute distress Nutritional Appearance: well nourished Orientation/consciousness: [facility] Head: Yes normocephalic and Yes atraumatic Eyes General: appearance normal, both eyes and all related structures Pupils: Equal, round and reactive pupils present EOM: EOMs intact bilaterally Resp Effort & Inspection: normal respiratory effort Neuro General: patient oriented x3 and gait normal Cranial nerves: Yes Equal, round and reactive pupils present Psych Affect: normal affect Assessment and Plan Assessment & Plan (1) Low back pain: Code(s): M54.50 - Low back pain, unspecified Qualifiers: Chronicity: chronic Sciatica presence: without sciatica Plan: Ongoing?low?back?pain X-ray?shows?small?anterolisthesis I?had?referred?her?to?[facility]?in?the?past?but?no?recent?physical?therapy?or?other?interventions. Referred?back?to?[facility],?physiatry Continue?pain?medications It?has?been?quite?sometime?since?she?has?had?a?urine?drug?screen?so?this?will?be?done?today. Understood?that?patient?uses?some?THC?products?which?is?legal?in?[place].??Last?urine?drug?screen?was?appropriate. May?need?MRI?at?some?point?but?would?likely?need?physical?therapy?first (2) Chronic pain: Code(s): G89.29 - Other chronic pain Plan: As?above Orders: Orders Drug Screen Urine Today F11.90 - Opioid use, unspecified, uncomplicated Referrals Physiatry Referral M54.2 - Cervicalgia, M54.50 - Low back pain, unspecified Coding Level of Care Code Est Pt Level 3 (19197) Diagnoses Low back pain M54.50 Chronicity: chronic Sciatica presence: without sciatica Chronic pain G89.29
== END 2023-12-04 12:19 | disposition home or self-care (01) ==
PROVIDERS: PCP Family Medicine; Visit Provider Family Medicine
DX: M54.50 Low back pain, unspecified (principal); G89.29 Other chronic pain
CPT/HCPCS: 99213

== ENCOUNTER 2023-12-04 12:14 | Outpatient (REF) | payer MEDICARE, MEDICAID, SELFPAY ==
[2023-12-04 14:33] LABS: Amphetamine Screen Urine Not Detected (Not Detect); Barbiturates, Urine Not Detected (Not Detect); Benzodiazepines Screen Urine Not Detected (Not Detect); Cannabinoid Screen Urine POSITIVE (Not Detect); Cocaine Screen Urine Not Detected (Not Detect); Fentanyl, urine Not Detected (Not Detect); Opiate Screen Urine POSITIVE (Not Detect); Phencyclidine Screen Urine Not Detected (Not Detect)
== END 2023-12-04 12:15 | disposition home or self-care (01) ==
LOC: HO.LAB 12:14
PROVIDERS: Visit Provider Family Medicine
DX: F11.90 Opioid use, unspecified, uncomplicated (principal)
CPT/HCPCS: 80307

== ENCOUNTER 2024-04-20 16:09 | Outpatient (AMB) | payer MEDICARE, MEDICAID, SELFPAY ==
--- NOTE | 2024-04-20 16:22 | MHC.PC.OV ---
Vital Signs 04/20/24 16:23 Height 5 ft 2 in Weight 225 lb 2 oz BMI 41.2 BP 130/78 Blood Pressure Location Rt brachial Position Sitting Respiration 12 Pulse 91 Pulse Source Pulse Oximeter Temp 97.8 F Temp Source Tympanic Pulse Oximetry (%) 95 Oxygen Delivery Method Room Air Intake Visit Reasons: f/u back pain/chronic pain Intake Note: FOLLOW up for back pain Allergies No Known Allergies Allergy (Verified 04/20/24 16:22) Medication List - Last Reconciled 04/20/24 by Jomar Lopez MD naloxone 4 mg/actuation (Narcan) 4 mg intranasal Q2M PRN 30 days oxycodone-acetaminophen 5-325 mg 1 tab PO BID PRN 28 days Tobacco use date assessed: 12/04/23 Dental Screening Dental Screen Date: 10/23/23 HPI f/u back pain/chronic pain HPI Details 64 y/o female presents to f/u chronic low back pain and cervicalgia. MRI spine shows incidental finding of L renal cyst seen on the R. She notes she plans to get started with physical therapy. HPI Comments History of Present Illness Details Documentation assistance for Jomar Lopez MD, was provided by Dao Mills, [employer] Science Technical Officer on 04/20/2024 at 4:51 PM EST. I, Dr. Lopez, have read, observed, and verified documentation. [facility] Medical History No pertinent past medical history Surgical History No pertinent past surgical history Family History Family/Other Cancer Social History Housing: Apartment Patient Tobacco Use Status: Current everyday Tobacco user Cigarette Packs Per Day: 0 Cigarettes Per Day: 8 Years Smoked: 10+ YEARS e-Cigarette/Vaping Use: Never Used Second Hand Smoke Exposure: Yes service: Yes Current occupational status: disabled Current occupational exposures/hazards: No Cognitive needs: No Hearing needs: No Vision needs: No Questionnaire Thrive Questionnaire Date Thrive assessed: 10/01/21 JAIR-7 AMB Questionnaire JAIR-7 Date JAIR - 7 assessed: 10/23/23 Source: Developed by Drs. Doug France, Juliann Allen, Jose Nelson and colleagues, with an educational tommy from [employer]. Review of Systems Const Denies chills, Denies fatigue, Denies fever(s), Denies headache(s) and Denies weakness ENT Denies dizziness and Denies headache(s) Card Denies dyspnea Resp Denies cough, Denies dyspnea, Denies wheezing and Denies other (shortness of breath) Musc Denies numbness and Denies tingling Neuro Denies dizziness, Denies headache(s), Denies numbness, Denies tingling and Denies weakness Psych Denies anxiety and Denies depression Endo Denies fatigue Aller/Immun Denies wheezing Physical exam (Primary Care) Vital Signs: Last Vital Signs Temp 97.8 F 04/20/24 16:23 Pulse 91 04/20/24 16:23 Resp 12 04/20/24 16:23 BP 130/78 04/20/24 16:23 Pulse Ox 95 04/20/24 16:23 Oxygen Delivery Method Room Air 04/20/24 16:23 BMI result Body Mass Index 41.2 Tobacco/Smoking Status: Tobacco use Status Tobacco use date assessed 12/04/23 04/20/24 16:26 Patient Tobacco Use Status Current everyday Tobacco 04/20/24 16:26 e-Cigarette/Vaping Use Never Used 04/20/24 16:26 Thrive Assessment: Date of Thrive Assessment Date Thrive assessed 10/01/21 04/20/24 16:26 Const General: well developed; No acute distress Nutritional Appearance: well nourished Orientation/consciousness: patient oriented x3 [facility] Head: Yes normocephalic and Yes atraumatic Eyes General: appearance normal, both eyes and all related structures Pupils: Equal, round and reactive pupils present EOM: EOMs intact bilaterally Resp Effort & Inspection: normal respiratory effort Neuro General: patient oriented x3 and gait normal Cranial nerves: Yes Equal, round and reactive pupils present Psych Affect: normal affect Assessment and Plan Assessment & Plan (1) Chronic pain: Code(s): G89.29 - Other chronic pain Plan: Chronic?low?back?pain?and?cervical?spine?pain, fairly?stable?though?she?will?be?starting?physical?therapy?through?[facility] Pain?is?controlled?with?Percocet?b.i.d. Random?urine?at?last?visit?was?appropriate Continue?current?medication?regimen Follow-up?with?[facility]?and?physical?therapy (2) Low back pain: Code(s): M54.50 - Low back pain, unspecified Qualifiers: Chronicity: chronic Sciatica presence: without sciatica Plan: As?above (3) Cervicalgia: Code(s): M54.2 - Cervicalgia Plan: As?above (4) Renal cyst: Code(s): N28.1 - Cyst of kidney, acquired Plan: Incidental?renal?cyst?seen?on?MRI Will?check?an?ultrasound?and?follow-up?patient?by?telemedicine Orders: Orders US renal BI Today N28.1 - Cyst of kidney, acquired Complete Blood Count Auto Diff Today Z00.00 - Encounter for general adult medical examination without abnormal findings Microalbumin, Random (w Creat) Today I10 - Essential (primary) hypertension Lipid Panel Today Z00.00 - Encounter for general adult medical examination without abnormal findings TSH reflex Free T4 Today Z00.00 - Encounter for general adult medical examination without abnormal findings Comprehensive [place]. Panel Fast Today Z00.00 - Encounter for general adult medical examination without abnormal findings UA and rflx microscopic Today Z00.00 - Encounter for general adult medical examination without abnormal findings Medications: Refilled naloxone 4 mg/actuation (Narcan) spray 1 dose into ONE nostril; alternate nostrils w each dose until help arrives 4 mg intranasal Q2M 30 days PRN 2 ea 4RF opioid overdose Coding Level of Care Code Est Pt Level 3 (15247) Diagnoses Chronic pain G89.29 Low back pain M54.50 Chronicity: chronic Sciatica presence: without sciatica Cervicalgia M54.2 Renal cyst N28.1
[2024-04-20 16:23] VITALS: BP 130/78; PULSE 91; RESP 12; TEMP 36.6; O2SAT 95; BMI 41.2
== END 2024-04-20 17:05 | disposition home or self-care (01) ==
PROVIDERS: PCP Family Medicine; Visit Provider Family Medicine
DX: G89.29 Other chronic pain (principal); M54.50 Low back pain, unspecified; M54.2 Cervicalgia; N28.1 Cyst of kidney, acquired
CPT/HCPCS: 99213

== ENCOUNTER 2024-04-28 09:16 | Outpatient (REF) | payer MEDICARE, MEDICAID, SELFPAY ==
--- NOTE | ~2024-04-28 | US_ITS ---
EXAMINATION: US RETROPERITONEAL COMPLETE (RENAL) CLINICAL INFORMATION: Cyst of kidney. COMPARISON: 03/16/2018 renal ultrasound. TECHNIQUE: Real-time imaging of the kidneys and bladder. Limited visualization due to bowel gas. FINDINGS: RIGHT KIDNEY: 15.4 x 4.4 x 5.7 cm (SAG x AP x TRV). 6.4 cm upper pole cyst and 2.6 cm lower pole cyst with benign features. There is no indication for additional imaging at this time. Previous exam demonstrated 6.2 cm upper pole and 1.4 cm lower pole cysts. LEFT KIDNEY: 11.7 x 5.5 x 5.0 cm (SAG x AP x TRV). 5 mm midpole calculus. No hydronephrosis. Renal cortical thickness is normal. Limited visualization. 2.1 cm and 0.9 cm lower pole cysts with benign features. There is no indication for additional imaging at this time. US/US renal BI IMPRESSION: 1. Bilateral renal cysts with benign features. There is no indication for additional imaging at this time. 2. Left renal 5 mm midpole calculus. No hydronephrosis. Electronically signed by: Anahi Guzman MD 05/05/2024 03:47 PM EDT
== END 2024-04-28 09:17 | disposition home or self-care (01) ==
LOC: HO.US 09:16
PROVIDERS: PCP Family Medicine; Visit Provider Family Medicine
DX: N28.1 Cyst of kidney, acquired (principal)
CPT/HCPCS: 76775

== ENCOUNTER → 2024-06-03 09:25 | Outpatient (BNVA) | payer MEDICARE, MEDICAID, SELFPAY | PROVIDERS: PCP Family Medicine; Visit Provider Family Medicine ==

== ENCOUNTER 2024-10-19 13:03 | Outpatient (REF) | payer MEDICARE, MEDICAID, SELFPAY ==
[2024-10-19 14:14] LABS: MANUAL DIFF FLAG NO
[2024-10-19 14:25] LABS: Appearance Urine Cloudy; Color Urine Yellow; Glucose Urine UA Negative (Negative); Leukocyte Esterase Urine Negative (Negative); Nitrite Urine Negative (Negative); PH 5.5 (5.0-9.0); UMIC TRIGGER UA YES; Urine Blood Trace (Negative); Urine Ketones Negative (Negative); Urine Protein Negative (Neg-Trace)
[2024-10-19 14:27] LABS: Basophils Percent Auto 0.3 % (0-2); Eosinophils Absolute Auto 0.1 X10*3/uL (0.0-0.4); Eosinophils Percent Auto 0.8 % (0-4); Hematocrit 47.7 % (37.0-47.0); Hemoglobin 15.4 g/dl (12.0-16.0); Imm Gran Abs Auto 0.02 X10*3/uL (0.00-0.03); Imm Gran Pct Auto 0.3 % (0.0-0.4); Lymphocytes Percent Auto 28.2 % (20-40); Mean Corpuscular HGB Conc 32.3 g/dl (31.0-35.0); Mean Corpuscular Hemoglobin 32.9 pg (27.0-33.0); Mean Corpuscular Volume 101.9 fL (80.0-98.0); Mean Platelet Volume 9.1 fL (9.4-12.3); Monocytes Absolute Auto 0.4 X10*3/uL (0.1-1.2); Monocytes Percent Auto 5.1 % (2-11); Neutrophils Absolute Auto 4.6 x10*3/uL (2.0-8.3); Neutrophils Percent Auto 65.3 % (45-73); Platelet Count 235 X10*3/uL (160-400); Red Blood Count 4.68 X10*6/uL (4.20-5.50); Red Cell Distribution Width 13.1 % (11.0-16.0); White Blood Count 7.1 X10*3/uL (4.8-10.8)
[2024-10-19 14:31] LABS: Bacteria Urine 3+ (None Seen); Hyaline Casts Urine 0-2 /LPF (0-2); WBC Urine 0-5 /HPF (0-5)
[2024-10-19 14:57] LABS: Creatinine Urine 108.22 mg/dL; Microalbum/Creatinine Ratio Ur 42.5 ug/mg cr (<30)
[2024-10-19 15:02] LABS: Alanine Aminotransferase 24 U/L (0-31); Albumin Level 4.1 g/dL (3.5-5.0); Alkaline Phosphatase 81 U/L (39-117); Anion Gap 11 (12-20); Aspartate Amino Transferase 21 U/L (5-31); Bilirubin Total 0.6 mg/dL (0.0-1.0); Blood Urea Nitrogen 13 mg/dL (9-16); Calcium 9.5 mg/dL (8.4-10.2); Carbon Dioxide 26 mmol/L (22-29); Chloride 106 mmol/L (96-108); Cholesterol 224 mg/dL (<200); Estimated Glomerular Filt Rate > 60; Glucose Fasting 140 mg/dL (60-99); HDL Cholesterol 64 mg/dL (>40); LDL Cholesterol Calculated 138 mg/dL (<100); Potassium 4.3 mmol/L (3.3-5.1); Sodium 139 mmol/L (135-145); TSH reflex Free T4 2.84 uIU/mL (0.32-4.0); Triglycerides 112 mg/dL (<150)
== END 2024-10-19 13:04 | disposition home or self-care (01) ==
LOC: HO.WFDLDS 13:03
PROVIDERS: Visit Provider Family Medicine
DX: Z00.00 Encounter for general adult medical examination without abnormal findings (principal); I10 Essential (primary) hypertension
CPT/HCPCS: 36415; 80053; 80061; 81001; 82043; 82570; 84443; 85025

== ENCOUNTER 2024-10-25 08:53 | Outpatient (AMB) | payer MEDICARE, MEDICAID, SELFPAY ==
--- NOTE | 2024-10-25 09:05 | MHC.PC.OV ---
Vital Signs 10/25/24 09:15 Height 5 ft 2 in Weight 229 lb 6 oz BMI 41.9 BP 130/70 Blood Pressure Location Rt brachial Position Sitting Respiration 16 Pulse 104 H Pulse Source Pulse Oximeter Temp 98.1 F Temp Source Oral Pulse Oximetry (%) 94 Oxygen Delivery Method Room Air Intake Visit Reasons: Extended exam with f/u labs and health maint Intake Note: extended exam Foam Caster Required: No Is last menstrual period known: No Post menopausal: Yes Patient : No Allergies No Known Allergies Allergy (Verified 10/25/24 09:14) Medication List - Last Reconciled 10/25/24 by Jomar Lopez MD naloxone 4 mg/actuation (Narcan) 4 mg intranasal Q2M PRN 30 days oxycodone-acetaminophen 5-325 mg 1 tab PO BID PRN 28 days Tobacco use date assessed: 10/25/24 Fall risk assessment: No Falls in past year Last assessed Fall Risk: 10/25/24 Dental Screening Dental Screen Date: 10/25/24 Did you have a dental visit in the last 12 months?: No Did you have a dental problem in the last 6 months where you did not have access to dental care?: No Was dental information given to patient?: No HPI Extended exam with f/u labs and health maint HPI Details 64 y/o female presents for an extended exam with f/u labs and health maintenance. Labs drawn 10/19/24. Reviewed labs with pt. Elevated fasting glucose of 140. A1c today 10/25/24 is 5.8%. Triglycerides 112. TC 224. LDL 138. HDL 64. TSH 2.84. She plans to work on exercise. Notes she has not had a colonoscopy yet. HPI Comments History of Present Illness Details Documentation assistance for Jomar Lopez MD, was provided by Dao Mills,? Compactor Driver on 10/25/2024 at 9:34 AM EST. I, Dr. Lopez, have read, observed, and verified documentation. ?? PFSH Medical History No pertinent past medical history Surgical History No pertinent past surgical history Family History Family/Other Cancer Social History Housing: Apartment Patient Tobacco Use Status: Current everyday Tobacco user Cigarette Packs Per Day: 0 Cigarettes Per Day: 8 Years Smoked: 10+ YEARS e-Cigarette/Vaping Use: Never Used Second Hand Smoke Exposure: Yes service: Yes Current occupational status: disabled Current occupational exposures/hazards: No Cognitive needs: No Hearing needs: No Vision needs: No Questionnaire PHQ-9 Over the last 2 weeks, how often have you been bothered by any of the following problems? 1. Little interest or pleasure in doing things: several days 2. Feeling down, depressed, or hopeless: several days 3. Trouble falling or staying asleep, or sleeping too much: several days 4. Feeling tired or having little energy: several days 5. Poor appetite or overeating: several days 6. Feeling bad about yourself - or that you are a failure or have let yourself or your family down: not at all 7. Trouble concentrating on things, such as reading the newspaper or watching television: not at all 8. Moving or speaking so slowly that other people could have noticed. Or the opposite - being so fidgety or restless that you have been moving around a lot more than usual: not at all 9. Thoughts that you would be better off or of hurting yourself in some way: not at all Total score: 5 Depression Screening Interpretation: Positive Depression Screening Done: Yes 36666 - PHQ-9 Billing: Yes Source: Developed by Drs. Doug France, Juliann Allen, Jose Nelson and colleagues, with an educational tommy from [employer]. Thrive Questionnaire Date Thrive assessed: 10/25/24 I am a: Patient What is your living situation today?: I have a steady place to live Within the past 12 months, did the food you bought not last and you didn't have the money to get more?: Never true Within the past 12 months, did you worry whether your food would run out before you got money to buy more?: Never true Do you have trouble paying for medicines?: No Do you have trouble getting transportation to medical appointments?: Yes Do you have trouble paying your heating and electricity bill?: No Do you have trouble taking care of your child, family member or friend?: No Do you have trouble with day-to-day activities such as bathing, preparing meals, shopping, managing finances, etc.?: No Are you currently unemployed and looking for a job?: No Are you interested in more education?: No Please select the resources that you would like help with: None Currently or been in a relationship where the following occur: No concerns reported THRIVE Score: 1 AUDIT C Alcohol Use Questionnaire (AUDIT-C) 1. How often do you have a drink containing alcohol?: Never 3. How often do you have six or more drinks on one occasion?: Never Total Score: 0 Score Reviewed/Action Taken: Yes JAIR-7 AMB Questionnaire JAIR-7 Date JAIR - 7 assessed: 10/25/24 Feeling nervous, anxious, or on edge: 1 = Several days Not being able to stop or control worryin = Several days Worrying too much about different things: 1 = Several days Trouble relaxin = Several days Being so restless that it is hard to sit still: 0 = Not at all Feeling afraid as if something awful might happen: 3 = Nearly every day Source: Developed by Drs. Doug France, Juliann Allen, Jose Nelson and colleagues, with an educational tommy from [employer]. JAIR-7 Assessment Billing JAIR-7 Assessment Tool: JAIR-7 Assessment 61001 Review of Systems Const Denies chills, Denies fatigue, Denies fever(s), Denies headache(s) and Denies weakness Eyes Denies change in vision ENT Denies dizziness, Denies headache(s), Denies hearing loss, Denies nasal congestion, Denies sinus pain, Denies sinus pressure and Denies sore throat Card Denies chest pain, Denies lightheadedness, Denies dyspnea and Denies other (palpitations) Resp Denies cough, Denies dyspnea and Denies wheezing GI Denies abdominal pain, Denies melena, Denies hematochezia, Denies change in bowel habits, Denies dyspepsia and Denies nausea Denies hematuria and Denies dysuria Musc Denies abnormal gait, Denies myalgias, Denies arthralgias, Denies numbness and Denies tingling Skin/Breast Denies rash, Denies unusual bruising and Denies wounds Neuro Denies abnormal gait, Denies dizziness, Denies headache(s), Denies memory loss, Denies numbness, Denies Sensory deficit (Neuro), Denies tingling and Denies weakness Psych Denies anxiety, Denies depression and Denies memory loss Endo Denies cold intolerance, Denies fatigue, Denies heat intolerance, Denies polydipsia and Denies polyuria Jasvir/Lymph Denies easy bleeding and Denies easy bruising Aller/Immun Denies wheezing Physical exam (Primary Care) Vital Signs: Last Vital Signs Temp 98.1 F 10/25/24 09:15 Pulse 104 H 10/25/24 09:15 Resp 16 10/25/24 09:15 BP 130/70 10/25/24 09:15 Pulse Ox 94 10/25/24 09:15 Oxygen Delivery Method Room Air 10/25/24 09:15 BMI result Body Mass Index 41.9 Tobacco/Smoking Status: Tobacco use Status Tobacco use date assessed 10/25/24 10/25/24 09:18 Patient Tobacco Use Status Current everyday Tobacco 10/25/24 09:06 e-Cigarette/Vaping Use Never Used 10/25/24 09:06 PHQ-9: PHQ-9 Score PHQ-9: Total score 5 10/25/24 09:24 Depression Screening Interpretation: Positive Thrive Assessment: Date of Thrive Assessment Date Thrive assessed 10/25/24 10/25/24 09:06 Currently or been in a relationship where the following occur: No concerns reported Const General: no acute distress, well developed, alert and awake Nutritional Appearance: well nourished Orientation/consciousness: patient oriented x3 HENMT Head: Yes normocephalic and Yes atraumatic Ears: hearing grossly normal bilaterally and TM's normal bilaterally General nose exam: Normal external nose present and Normal nares present Mouth: Normal oral and palatal mucosa present and moist mucous membranes Teeth and gingiva: dentition normal Throat: Yes posterior oropharynx normal Eyes General: appearance normal, both eyes and all related structures Pupils: Equal, round and reactive pupils present and Pupil accommodation reflex normal EOM: EOMs intact bilaterally Neck Neck: Yes normal visual inspection, Yes no lymphadenopathy and Yes trachea midline Thyroid: Thyroid normal Carotids: no bruits Lymphatic: no lymphadenopathy noted Chest Chest palpation & inspection: normal inspection of the chest Resp Effort & Inspection: normal respiratory effort Auscultation: clear to auscultation bilaterally Cardio Rate: regular rate Rhythm: regular rhythm Heart sounds: S1 normal heart sound present, S2 normal heart sound present, no gallops, no murmurs and no rubs Bruits: no abdominal aortic bruits and no carotid bruits GI Palpation (GI): No Abdominal aortic bruit present, Soft to palpation, nontender, No hepatosplenomegaly present and No Rebound tenderness present Auscultation: normal bowel sounds General: Yes no CVA tenderness Back/Spine/Pelvis Back: no CVA tenderness Cervical Spine: cervical ROM normal and No Cervical spine tenderness Thoracic/Lumbar Spine: thoraco-lumbar ROM normal, No pain with thoraco-lumbar ROM, No thoracic spinal tenderness and No lumbar spinal tenderness Skin Lesions: no lesions Rashes: no rashes Trauma: no lacerations or abrasions Wounds: no wounds Nails: normal Neuro General: patient oriented x3 Cranial nerves: Yes Equal, round and reactive pupils present Cognition (Neuro): normal cognition Gait exam (Neuro): Normal gait present Motor exam (neuro): 5/5 motor strength present throughout Sensory Exam: No Sensory deficit (Neuro) Deep tendon reflexes (DTR's): Right patellar reflex intensity grade: 2+ and Left patellar reflex intensity grade: 2+ Extrem General: Yes normal to inspection and No edema Psych Appearance: grossly normal Affect: normal affect Attitude: cooperative Thought process: Normal thought process present Coding Level of Care Code Est Pt Level 4 (09881) Diagnoses Hypercholesteremia E78.00 Breast cancer screening by mammogram Z12.31 Pre-diabetes R73.03 Screening for cervical cancer Z12.4 Screening for colon cancer Z12.11 Microalbuminuria R80.9 Adult general medical exam Z00.00 Additional Codes JAIR-7 Assessment Billing - JAIR-7 Assessment Tool: JAIR-7 Assessment 29427 ([id number]) PHQ-9 - 76891 - PHQ-9 Billing: Yes ([id number]) Assessment & Plan Assessment & Plan (1) Hypercholesteremia: Code(s): E78.00 - Pure hypercholesterolemia, unspecified Category: Medical Plan: Lipids?are?too?high. LDL?goal?is?less?than?100 Start?atorvastatin (2) Breast cancer screening by mammogram: Code(s): Z12.31 - Encounter for screening mammogram for malignant neoplasm of breast Category: Medical Plan: Due?for?next?mammogram?and?patient?has?this?scheduled. (3) Pre-diabetes: Code(s): R73.03 - Prediabetes Category: Medical Plan: A1c?5.8%.??Pre?diabetes Encouraged?a?diet?lower?in?sugars?and?starches,?exercise?and?weight?loss (4) Screening for cervical cancer: Code(s): Z12.4 - Encounter for screening for malignant neoplasm of cervix Category: Medical Plan: Patient?says?she?has?not?had?a?Pap?smear?in?about?4?years. Encouraged?her?to?contact?her?drafting layout worker?for?follow-up (5) Screening for colon cancer: Code(s): Z12.11 - Encounter for screening for malignant neoplasm of colon Category: Medical Plan: Had?referred?patient?to?Gastroenterology?in?the?past?but?she?has?not?followed?through?on?this Patient?agrees?to?follow?through?with?colonoscopy.??Referred?to?GI (6) Microalbuminuria: Code(s): R80.9 - Proteinuria, unspecified Category: Medical Plan: Mildly?elevated?microalbumin?levels Encouraged?patient?to?control?blood?sugar?blood?pressure?cholesterol Will?monitor (7) Adult general medical exam: Code(s): Z00.00 - Encounter for general adult medical examination without abnormal findings Category: Medical Plan: 64-year-old?female?presents?for?extended?exam Encouraged?healthy?diet?with?active?lifestyle?exercise?as?tolerated Orders: Orders Comprehensive [place]. Panel Fast Today R73.03 - Prediabetes, Z00.00 - Encounter for general adult medical examination without abnormal findings Lipid Panel Today E78.00 - Pure hypercholesterolemia, unspecified, Z00.00 - Encounter for general adult medical examination without abnormal findings MM tomosynthesis screening BI Today Z12.31 - Encounter for screening mammogram for malignant neoplasm of breast Medications: New atorvastatin 10 mg PO BEDTIME 90 days 90 tabs 3RF E78.00 - Pure hypercholesterolemia, unspecified
[2024-10-25 09:15] VITALS: BP 130/70; PULSE 104; RESP 16; TEMP 36.7; O2SAT 94; BMI 41.9
== END 2024-10-25 09:54 | disposition home or self-care (01) ==
PROVIDERS: PCP Family Medicine; Visit Provider Family Medicine
DX: E78.00 Pure hypercholesterolemia, unspecified (principal); Z12.31 Encounter for screening mammogram for malignant neoplasm of breast; R73.03 Prediabetes; Z12.4 Encounter for screening for malignant neoplasm of cervix; Z12.11 Encounter for screening for malignant neoplasm of colon; R80.9 Proteinuria, unspecified; Z00.00 Encounter for general adult medical examination without abnormal findings

== ENCOUNTER → 2024-10-25 08:53 | Outpatient (BNVA) | payer MEDICARE, MEDICAID, SELFPAY | PROVIDERS: PCP Family Medicine; Visit Provider Family Medicine | DX: E78.00 Pure hypercholesterolemia, unspecified (principal); R73.03 Prediabetes; R80.9 Proteinuria, unspecified | CPT/HCPCS: 83036; 96127; 99212 ==

== ENCOUNTER 2025-03-16 09:38 | Outpatient (REF) | payer MEDICARE, MEDICAID, SELFPAY ==
[2025-03-16 11:16] LABS: Appearance Urine Cloudy; Glucose Urine UA Negative (Negative); PH 5.0 (5.0-9.0); Specific Gravity - Urine 1.015 (1.005-1.025); UMIC TRIGGER UA YES
[2025-03-16 11:40] LABS: Alanine Aminotransferase 23 U/L (0-31); Albumin Level 4.6 g/dL (3.5-5.0); Alkaline Phosphatase 83 U/L (39-117); Anion Gap 13 (12-20); Aspartate Amino Transferase 25 U/L (5-31); Blood Urea Nitrogen 10 mg/dL (9-16); Calcium 9.9 mg/dL (8.4-10.2); Carbon Dioxide 27 mmol/L (22-29); Chloride 103 mmol/L (96-108); Cholesterol 183 mg/dL (<200); Estimated Glomerular Filt Rate > 60; HDL Cholesterol 62 mg/dL (>40); Potassium 4.5 mmol/L (3.3-5.1); Sodium 138 mmol/L (135-145); Total Protein 8.0 g/dL (6.5-8.0); Triglycerides 127 mg/dL (<150)
== END 2025-03-16 09:39 | disposition home or self-care (01) ==
LOC: HO.WFDLDS 09:38
PROVIDERS: Visit Provider Family Medicine
DX: Z00.00 Encounter for general adult medical examination without abnormal findings (principal); R73.03 Prediabetes; E78.00 Pure hypercholesterolemia, unspecified
CPT/HCPCS: 36415; 80053; 80061; 81001

== ENCOUNTER 2025-03-23 09:21 | Outpatient (AMB) | payer MEDICARE, MEDICAID, SELFPAY ==
--- NOTE | 2025-03-23 09:24 | A.OFFPC_ITS ---
Vital Signs 03/23/25 09:30 03/23/25 09:48 Height 5 ft 2 in Weight 225 lb 8 oz BMI 41.2 BP 162/88 H 138/80 Blood Pressure Location Rt brachial Rt brachial Position Sitting Sitting Respiration 13 Pulse 97 Pulse Source Pulse Oximeter Temp 97.5 F Temp Source Oral Pulse Oximetry (%) 98 Oxygen Delivery Method Room Air Intake Visit Reasons: f/u pre-diabetes, labs, resched Intake Note: Follow up on pre diabetes and labs. Patient does not habe any uti sx. 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 Allergies No Known Allergies Allergy (Verified 03/23/25 09:25) Medication List - Last Reconciled 03/23/25 by IDLAN Lion-BC atorvastatin 10 mg PO BEDTIME 90 days naloxone 4 mg/actuation (Narcan) 4 mg intranasal Q2M PRN 30 days oxycodone-acetaminophen 5-325 mg 1 tab PO BID PRN 28 days Tobacco use date assessed: 03/23/25 Fall risk assessment: No Falls in past year Last assessed Fall Risk: 03/23/25 Dental Screening Dental Screen Date: 03/23/25 Did you have a dental visit in the last 12 months?: Yes Did you have a dental problem in the last 6 months where you did not have access to dental care?: No Was dental information given to patient?: Patient has dentist HPI HPI Comments History of Present Illness Details History of Present Illness - The patient is a 65-year-old female, p atient of Dr Lopez, presenting for a routine follow-up for prediabetes and hyperlipidemia. - Prediabetes: Improved fasting glucose 116 mg/dL from 140 mg/dL. A1c 5.7% done today. - Hyperlipidemia: On atorvastatin 10 mg daily; cholesterol levels improved. Taking as directed w/o side effects - Hematuria with bacteria in urine noted 03/16/25; associated with body wash usage. Denies urinary symptoms. - Microalbuminuria: Elevated at 42.5 mg/ L 10/2024. Re-evaluation required, but urine sample not given today. - Reports weight loss: 4 pounds. Walking with friends on bike path - Tobacco use disorder: Reduced to five cigarettes daily. - Family history: Sister with myocardial infarction and stent placement. - Due for Tdap, declined taday. Review of Systems - General: Denies fatigue or weight gain . - Cardiovascular: Denies chest pain. - Respiratory: Denies shortness of breat h. - Gastrointestinal: Denies abdominal jhony n. - Genitourinary: Denies dysuria, urinary frequency or urgency, hematuria on self-examination. - Musculoskeletal: Reports regular walki ng activities. - Neurological: Denies headaches or pino ting. - Psychiatric: Reports feeling nervous d uring visits, no history of anxiety disorders. - Skin: Denies rash or itching. Physical Exam General: Well developed, well nourished, in no acute distress. Appears stated age. Head: Normocephalic, atraumatic. Eyes: Pupils are equal, round and reactive to light and accommodation. Conjunctivae are clear. Lungs: Dim and clear throughout Heart: Regular rate and rhythm. No murmurs, click, rubs or gallops are noted. Psych: Mood and affect appropriate. Patient appeared a little nervous initially but relaxed during the examination. Results 03/16/25 - Labs: Fasting glucose 116 mg/dL (impro seema from 140 mg/dL); Hemoglobin A1c 5.7% today. - Lipid profile: Total cholesterol 183 m g/dL, LDL 96 mg/dL, HDL 62 mg/dL, triglycerides 127 mg/dL. - Urinalysis: Positive for blood and moi teria; elevated microalbumin previously noted (42.5 mg/L). Discussion Notes I discussed with the patient her progress regarding prediabetes and hyperlipidemia management. Her fasting blood glucose has improved. Her lipid profile has shown significant improvement with atorvastatin treatment. We reviewed her urinalysis findings including the presence of blood and bacteria, and she explained the possible causes. A repeat urine sample was discussed but not obtained. Will repeat before her next visit w/ PCP, sooner should she develop sx. Weight loss and reduced cigarette consumption were acknowledged positively. We discussed her sister's recent heart issues and importance of continued lifestyle adjustments. Follow-up in three months before her next visit was recommended, with a repeat urinalysis for microalbumin and a tetanus shot will be considered then. Assessment and Plan 1. Prediabetes - Continue lifestyle modifications. 2. Hyperlipidemia - Atorvastatin 10 mg daily. - Ensure medication adherence. 3. Hematuria - Monitor urinalysis findings. - Plan for repeat sample. 4. Microalbuminuria - Elevated microalbumin; re-evaluate. - Plan urine test before next visit. 5. Tobacco use disorder - Encourage smoking reduction. 6. Family history of cardiovascular dise ase - Note sister's condition. - Emphasize lifestyle changes. 7. Tetanus immunization - Tetanus shot due; discuss at next visi t. Patient Instructions - Continue taking atorvastatin daily as prescribed. - Maintain lifestyle changes, including diet and exercise. - Attend follow-up appointments every th ree months. - Plan to provide a urine sample before the next visit. - Consider a tetanus vaccine at the next appointment. - Reduce cigarette consumption further i f possible. - Support your sister's health journey a nd make heart-healthy choices. RTO 3 MONTHS WITH PCP, LABS 1 WEEK BEFORE, FU HLD, PREDIABETES, MICROALB, TOBACCO USE Consent Patient was informed and verbally consented to the use of an ambient scribe for clinic note documentation during this visit. Total time spent caring for the patient today was 30 minutes. This includes time spent before the visit reviewing the chart, time spent during the visit, and time spent after the visit on documentation, reviewing laboratory results, diagnostic imaging, medications, performing a medically necessary evaluation, counseling on diagnoses, care coordination, ordering appropriate tests, ordering appropriate medications, review of tests performed by other providers, reporting test results with the patient, communication with other healthcare providers. [facility] Medical History No pertinent past medical history Surgical History No pertinent past surgical history Family History Family/Other Cancer Social History Housing: Apartment Patient Tobacco Use Status: Current everyday Tobacco user Cigarette Packs Per Day: 0 Cigarettes Per Day: 8 Years Smoked: 10+ YEARS e-Cigarette/Vaping Use: Never Used Second Hand Smoke Exposure: Yes service: Yes Current occupational status: disabled Current occupational exposures/hazards: No Cognitive needs: No Hearing needs: No Vision needs: No Questionnaire PHQ-9 Over the last 2 weeks, how often have you been bothered by any of the following problems? 1. Little interest or pleasure in doing things: not at all 2. Feeling down, depressed, or hopeless: not at all 3. Trouble falling or staying asleep, or sleeping too much: not at all 4. Feeling tired or having little energy: not at all 5. Poor appetite or overeating: not at all 6. Feeling bad about yourself - or that you are a failure or have let yourself or your family down: not at all 7. Trouble concentrating on things, such as reading the newspaper or watching television: not at all 8. Moving or speaking so slowly that other people could have noticed. Or the opposite - being so fidgety or restless that you have been moving around a lot more than usual: not at all 9. Thoughts that you would be better off or of hurting yourself in some way: not at all Total score: 0 Depression Screening Interpretation: Negative Depression Screening Done: Yes 19642 - PHQ-9 Billing: Yes Source: Developed by Drs. Doug France, Juliann Allen, Jose Nelson and colleagues, with an educational tommy from [employer]. Thrive Questionnaire Date Thrive assessed: 03/23/25 I am a: Patient What is your living situation today?: I have a steady place to live Within the past 12 months, did the food you bought not last and you didn't have the money to get more?: Never true Within the past 12 months, did you worry whether your food would run out before you got money to buy more?: Never true Do you have trouble paying for medicines?: No Do you have trouble getting transportation to medical appointments?: Yes Do you have trouble paying your heating and electricity bill?: No Do you have trouble taking care of your child, family member or friend?: No Do you have trouble with day-to-day activities such as bathing, preparing meals, shopping, managing finances, etc.?: No Are you currently unemployed and looking for a job?: No Are you interested in more education?: No Please select the resources that you would like help with: None THRIVE Score: 1 AUDIT C Alcohol Use Questionnaire (AUDIT-C) 1. How often do you have a drink containing alcohol?: Never 3. How often do you have six or more drinks on one occasion?: Never Total Score: 0 Score Reviewed/Action Taken: Yes JAIR-7 AMB Questionnaire JAIR-7 Date JAIR - 7 assessed: 03/23/25 Feeling nervous, anxious, or on edge: 0 = Not at all Not being able to stop or control worryin = Not at all Worrying too much about different things: 0 = Not at all Trouble relaxin = Not at all Being so restless that it is hard to sit still: 0 = Not at all Becoming easily annoyed or irritable: 0 = Not at all Feeling afraid as if something awful might happen: 0 = Not at all Total JAIR-7 score (0-4 normal; 5-9 mild; 10-14 moderate; 15-21 severe): 0 Source: Developed by Drs. Doug France, Juliann Allen, Jose Nelson and colleagues, with an educational tommy from [employer]. JAIR-7 Assessment Billing JAIR-7 Assessment Tool: JAIR-7 Assessment 75937 Physical exam (Primary Care) Vital Signs: Last Vital Signs Temp 97.5 F 03/23/25 09:30 Pulse 97 03/23/25 09:30 Resp 13 03/23/25 09:30 BP 162/88 H 03/23/25 09:30 Pulse Ox 98 03/23/25 09:30 Oxygen Delivery Method Room Air 03/23/25 09:30 BMI result Body Mass Index 41.2 BMI Assessment/Plan discussion: High BMI High, discussed plan: lifestyle Tobacco/Smoking Status: Tobacco use Status Tobacco use date assessed 03/23/25 03/23/25 09:28 Patient Tobacco Use Status Current everyday Tobacco 03/23/25 09:28 e-Cigarette/Vaping Use Never Used 03/23/25 09:28 Are you ready to quit: Yes Tobacco cessation counseling provided: Yes Items discussed: Nicotine replacement, QuitWorks and Other Relapse Prevention: discussed the importance of a supportive environment, discussed extending NRT, discussed negative mood or depression after quitting, weight gain after smoking is common and discussed dietary, exercise and/or lifestyle changes Number of minutes spent counselin CPT code: 23665 - 4-10 Minutes PHQ-9: PHQ-9 Score PHQ-9: Total score 0 03/23/25 09:28 Depression Screening Interpretation: Negative Thrive Assessment: Date of Thrive Assessment Date Thrive assessed 03/23/25 03/23/25 09:28 Results AMB Hemoglobin A1c AMB Hemoglobin A1c 5.7 % Last Edit by Lydia Gaspar MA on 03/23/25 09:52 Coding Level of Care Code Est Pt Level 4 (33427) Complex EM visit Add On G2211 Diagnoses Pre-diabetes R73.03 Tetanus, diphtheria, and acellular pertussis (Tdap) vaccination declined Z28.21 Hypercholesteremia E78.00 Obesity, morbid, BMI 40.0-49.9 E66.01 Family history of [place] (myocardial infarction) Z82.49 Microalbuminuria R80.9 Encounter for smoking cessation counseling Z71.6 Current smoker F17.200 Abnormal urinalysis R82.90 Additional Codes JAIR-7 Assessment Billing - JAIR-7 Assessment Tool: JAIR-7 Assessment 26392 ([id number]) PHQ-9 - 47174 - PHQ-9 Billing: Yes ([id number]) Vital Signs *Quality* - CPT code: 03551 - 4-10 Minutes ([id number]) Assessment & Plan Assessment & Plan (1) Pre-diabetes: Code(s): R73.03 - Prediabetes Category: Medical (2) Tetanus, diphtheria, and acellular pertussis (Tdap) vaccination declined: Code(s): Z28.21 - Immunization not carried out because of patient refusal Category: Medical (3) Hypercholesteremia: Code(s): E78.00 - Pure hypercholesterolemia, unspecified Category: Medical (4) Obesity, morbid, BMI 40.0-49.9: Code(s): E66.01 - Morbid (severe) obesity due to excess calories Category: Medical (5) Family history of [place] (myocardial infarction): Comment: sister age 66 w/ stenting Code(s): Z82.49 - Family history of ischemic heart disease and other diseases of the circulatory system Category: Medical (6) Microalbuminuria: Code(s): R80.9 - Proteinuria, unspecified Category: Medical (7) Encounter for smoking cessation counseling: Code(s): Z71.6 - Tobacco abuse counseling Category: Medical (8) Current smoker: Code(s): F17.200 - Nicotine dependence, unspecified, uncomplicated Category: Medical (9) Abnormal urinalysis: Code(s): R82.90 - Unspecified abnormal findings in urine Category: Medical Plan . Orders: Orders AMB Hemoglobin A1c 3 Months E78.00 - Pure hypercholesterolemia, unspecified, R73.03 - Prediabetes, Z13.9 - Encounter for screening, unspecified Microalbumin, Random (w Creat) 3 Months E78.00 - Pure hypercholesterolemia, unspecified, R73.03 - Prediabetes Lipid Panel 3 Months E78.00 - Pure hypercholesterolemia, unspecified, R73.03 - Prediabetes UA CC w/rflx Micro + Cult 3 Months E78.00 - Pure hypercholesterolemia, unspecified, R30.0 - Dysuria, R73.03 - Prediabetes Patient Instructions: Patient Instructions - Continue taking atorvastatin daily as prescribed. - Maintain lifestyle changes, including diet and exercise. - Attend follow-up appointments every three months. - Plan to provide a urine sample before the next visit. - Consider a tetanus vaccine at the next appointment. - Reduce cigarette consumption further if possible. - Support your sister's health journey and make heart-healthy choices.
[2025-03-23 09:30] VITALS: BP 162/88; PULSE 97; RESP 13; TEMP 36.4; O2SAT 98; BMI 41.2
[2025-03-23 09:48] VITALS: BP 138/80
== END 2025-03-23 09:55 | disposition home or self-care (01) ==
LOC: HO.HMCFM 09:22
PROVIDERS: PCP Family Medicine; Visit Provider Nurse Practitioner Family
DX: R73.03 Prediabetes (principal); Z28.21 Immunization not carried out because of patient refusal; E66.01 Morbid (severe) obesity due to excess calories; Z68.41 Body mass index [BMI] 40.0-44.9, adult; E78.00 Pure hypercholesterolemia, unspecified; Z82.49 Family history of ischemic heart disease and other diseases of the circulatory system; R80.9 Proteinuria, unspecified; Z71.6 Tobacco abuse counseling; F17.210 Nicotine dependence, cigarettes, uncomplicated; R82.90 Unspecified abnormal findings in urine

== ENCOUNTER → 2025-03-23 09:21 | Outpatient (BNVA) | payer MEDICARE, MEDICAID, SELFPAY | PROVIDERS: PCP Family Medicine; Visit Provider Nurse Practitioner Family | DX: R73.03 Prediabetes (principal); E78.00 Pure hypercholesterolemia, unspecified; E66.01 Morbid (severe) obesity due to excess calories; Z68.41 Body mass index [BMI] 40.0-44.9, adult; R80.9 Proteinuria, unspecified; R82.90 Unspecified abnormal findings in urine; F17.200 Nicotine dependence, unspecified, uncomplicated; Z71.6 Tobacco abuse counseling; Z71.3 Dietary counseling and surveillance; Z82.49 Family history of ischemic heart disease and other diseases of the circulatory system | CPT/HCPCS: 83036; 96127; 99212 ==

== ENCOUNTER 2025-08-26 08:33 | Outpatient (AMB) | payer MEDICARE, MEDICAID, SELFPAY ==
--- NOTE | 2025-08-26 08:40 | A.OFFPC_ITS ---
Vital Signs 08/26/25 08:52 Height 5 ft 2 in Weight 210 lb 2 oz BMI 38.4 BP 128/80 Blood Pressure Location Rt brachial Position Sitting Respiration 16 Pulse 88 Pulse Source Pulse Oximeter Temp 97.6 F Temp Source Temporal Artery Scan Pulse Oximetry (%) 95 Oxygen Delivery Method Room Air Intake Visit Reasons: 3 mo with CALLIE Rosario prediabets/lipids/microalbum la Intake Note: Antonina presents in the office today for a hospital discharge and [place] paperwork. 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 Is last menstrual period known: No Post menopausal: Yes Patient : No Allergies No Known Allergies Allergy (Verified 08/26/25 08:49) Medication List - Last Reconciled 08/26/25 by Jomar Lopez MD amlodipine 5 mg PO DAILY aspirin 81 mg PO DAILY atorvastatin 80 mg PO BEDTIME naloxone 4 mg/actuation (Narcan) 4 mg intranasal Q2M PRN 30 days oxycodone-acetaminophen 5-325 mg 1 tab PO BID PRN 28 days Tobacco use date assessed: 08/26/25 Dental Screening Dental Screen Date: 08/26/25 Did you have a dental visit in the last 12 months?: No Did you have a dental problem in the last 6 months where you did not have access to dental care?: No Was dental information given to patient?: Patient declined HPI 3 mo with CALLIE Rosario prediabets/lipids/microalbum la HPI Details 65 y.o female presents to f/u chronic co nditions. Patient went to the ED on 08/09/2025 with right hand weakness and right facial droop CT scan showed occlusion of right internal carotid artery and multiple hypodensities within the right frontal and parietal lobes. Patient's last known date of feeling well was 08/02/2025 before she went to bed. She did not seek medical attention and was outside the window for lytic interventions. Patient was admitted and discharged on 08/11/2025. Pt notes she has an appt. with neurology. Reports ongoing issues with anxiety. [facility] Medical History No pertinent past medical history Surgical History No pertinent past surgical history Family History (Updated 08/26/25 @ 08:52 by Yvette Perez CMA) Family/Other Cancer Social History (Updated 08/26/25 @ 08:52 by Yvette Perez CMA) Housing: Apartment Alcohol intake: never Patient Tobacco Use Status: Former Tobacco user Cigarette Packs Per Day: 0 Cigarettes Per Day: 8 Years Smoked: 10+ YEARS e-Cigarette/Vaping Use: Never Used Second Hand Smoke Exposure: Yes service: Yes Current occupational status: disabled Current occupational exposures/hazards: No Cognitive needs: No Hearing needs: No Vision needs: No Questionnaire PHQ-9 Over the last 2 weeks, how often have you been bothered by any of the following problems? 1. Little interest or pleasure in doing things: more than half the days 2. Feeling down, depressed, or hopeless: more than half the days 3. Trouble falling or staying asleep, or sleeping too much: more than half the days 4. Feeling tired or having little energy: more than half the days 5. Poor appetite or overeating: not at all 6. Feeling bad about yourself - or that you are a failure or have let yourself or your family down: several days 7. Trouble concentrating on things, such as reading the newspaper or watching television: several days 8. Moving or speaking so slowly that other people could have noticed. Or the opposite - being so fidgety or restless that you have been moving around a lot more than usual: several days 9. Thoughts that you would be better off or of hurting yourself in some way: not at all Total score: 11 Source: Developed by Drs. Doug France, Juliann Allen, Jose Nelson and colleagues, with an educational tommy from [employer]. Thrive Questionnaire Date Thrive assessed: 10/18/24 What is your living situation today?: I have a steady place to live Within the past 12 months, did the food you bought not last and you didn't have the money to get more?: Never true Within the past 12 months, did you worry whether your food would run out before you got money to buy more?: Never true Do you have trouble paying for medicines?: No Do you have trouble getting transportation to medical appointments?: Yes Do you have trouble paying your heating and electricity bill?: No Do you have trouble taking care of your child, family member or friend?: No Do you have trouble with day-to-day activities such as bathing, preparing meals, shopping, managing finances, etc.?: No Are you currently unemployed and looking for a job?: No Are you interested in more education?: No Currently or been in a relationship where the following occur: No concerns reported THRIVE Score: 1 JAIR-7 AMB Questionnaire JAIR-7 Date JAIR - 7 assessed: 03/23/25 Becoming easily annoyed or irritable: 2 = More than half the days Source: Developed by Drs. Doug France, Juliann Allen, Jose Nelson and colleagues, with an educational tommy from [employer]. Review of Systems Const Denies chills, Denies fatigue, Denies fever(s), Denies headache(s) and Denies weakness ENT Denies dizziness and Denies headache(s) Card Denies dyspnea Resp Denies cough, Denies dyspnea, Denies wheezing and Denies other (shortness of breath) Musc Denies numbness and Denies tingling Neuro Denies dizziness, Denies headache(s), Denies numbness, Denies tingling and Denies weakness Psych Reports anxiety and Reports depression Endo Denies fatigue Aller/Immun Denies wheezing Physical exam (Primary Care) Vital Signs: Last Vital Signs Temp 97.6 F 08/26/25 08:52 Pulse 88 08/26/25 08:52 Resp 16 08/26/25 08:52 BP 128/80 08/26/25 08:52 Pulse Ox 95 08/26/25 08:52 Oxygen Delivery Method Room Air 08/26/25 08:52 BMI result Body Mass Index 38.4 Tobacco/Smoking Status: Tobacco use Status Tobacco use date assessed 08/26/25 08/26/25 08:56 Patient Tobacco Use Status Former Tobacco user 08/26/25 08:56 e-Cigarette/Vaping Use Never Used 08/26/25 08:52 PHQ-9: PHQ-9 Score PHQ-9: Total score 11 08/26/25 09:08 Thrive Assessment: Date of Thrive Assessment Date Thrive assessed 10/18/24 08/26/25 08:42 Currently or been in a relationship where the following occur: No concerns reported Const General: well developed; No acute distress Nutritional Appearance: well nourished Orientation/consciousness: patient oriented x3 [facility] Head: Yes normocephalic and Yes atraumatic Eyes General: appearance normal, both eyes and all related structures Pupils: Equal, round and reactive pupils present EOM: EOMs intact bilaterally Resp Effort & Inspection: normal respiratory effort Neuro General: patient oriented x3 and gait normal Cranial nerves: Yes Equal, round and reactive pupils present Psych Affect: normal affect Results AMB Hemoglobin A1c AMB Hemoglobin A1c 5.8 % Last Edit by Yvette Perez CMA on 08/26/25 09:37 Results Reviewed Results Reviewed: Laboratory Last Values Hgb A1c (Clinic) 5.8 % (4.0-6.0) 08/26/25 09:36 Coding Level of Care Code Est Pt Level 5 (64430) Diagnoses Acute ischemic right ICA stroke I63.231 Hyperlipidemia E78.5 Anxiety and depression F41.9; F32.A Pre-diabetes R73.03 Assessment & Plan Assessment & Plan (1) Acute ischemic right ICA stroke: Code(s): I63.231 - Cerebral infarction due to unspecified occlusion or stenosis of right carotid arteries Category: Medical Plan: Patient went to the ED on 08/09/2025 with right hand weakness and right facial droop CT scan showed occlusion of right internal carotid artery and multiple h ypodensities within the right frontal and parietal lobes. Patient's last known date of feeling well was 08/02/2025 before she went to bed. She did not seek medical attention and was outside the window for lytic interventions. Patient was admitted 08/09/2025 and discharged on 08/11/2025. Neurology had been consulted and they added aspirin. They increased her atorvastatin to 80 mg daily. Continue aspirin and atorvastatin as prescribed. Patient has quit smoking and I encouraged her to remain abstinent of tobacco products. Control blood pressure and work on weight loss. Avoid salt and sodium She has physical therapy and occupational therapy Left hand has significant swelling. Will likely benefit from a compression glove. Elevate left arm She has speech therapy. She has an appointment tomorrow with Neurology at [facility]. She will return in 1 month for follow-up. (2) Hyperlipidemia: Code(s): E78.5 - Hyperlipidemia, unspecified Category: Medical (3) Anxiety and depression: Code(s): F41.9 - Anxiety disorder, unspecified; F32.A - Depression, unspecified Category: Medical Plan: Significantly increased anxiety. Has used clonazepam in the past Will avoid using opioid medications within 2 hours of her benzodiazepine. Take Percocet 5/325 mg at 08:00 and 17:00 Can take clonazepam prn at 7 or later to help with anxiety at bedtime. Will return in a month to follow-up on anxiety and consider long-term options such as an SSRI (4) Pre-diabetes: Code(s): R73.03 - Prediabetes Category: Medical Plan FMLA paperwork filled out for her daughter to remain home to care for patient. Orders: Orders AMB Hemoglobin A1c 08/26/25 R73.03 - Prediabetes Medications: New clonazepam (Klonopin) administer 30 minutes before bedtime 0.25 mg (1/2 x 0.5 mg) PO BEDTIME 15 tabs 0RF 30 days miscellaneous medical supply Compression glove, Left. 20-30 mmHg, daily As directed, 999 days 2 ea 0RF I63.231 - Cerebral infarction due to unspecified occlusion or stenosis of right carotid arteries, M79.89 - Other specified soft tissue disorders Changed From atorvastatin 10 mg PO BEDTIME 90 days 90 tabs 3RF E78.00 - Pure hypercholesterolemia, unspecified To atorvastatin 80 mg PO BEDTIME E78.00 - Pure hypercholesterolemia, unspecified
[2025-08-26 08:52] VITALS: BP 128/80; PULSE 88; RESP 16; TEMP 36.4; O2SAT 95; BMI 38.4
== END 2025-08-26 09:47 | disposition home or self-care (01) ==
LOC: HO.HMCFM 08:34
PROVIDERS: PCP Family Medicine; Visit Provider Family Medicine
DX: I63.231 Cerebral infarction due to unspecified occlusion or stenosis of right carotid arteries (principal); E78.5 Hyperlipidemia, unspecified; F41.9 Anxiety disorder, unspecified; F32.A Depression, unspecified; R73.03 Prediabetes

== ENCOUNTER → 2025-08-26 08:33 | Outpatient (BNVA) | payer MEDICARE, MEDICAID, SELFPAY | PROVIDERS: PCP Family Medicine; Visit Provider Family Medicine | DX: I69.351 Hemiplegia and hemiparesis following cerebral infarction affecting right dominant side (principal); I69.392 Facial weakness following cerebral infarction; E78.5 Hyperlipidemia, unspecified; F32.A Depression, unspecified; F41.9 Anxiety disorder, unspecified; R73.03 Prediabetes; Z79.899 Other long term (current) drug therapy | CPT/HCPCS: 83036; 99212 ==